=== PATIENT | female | born 1990 | race Caucasian/White ===

== ENCOUNTER 2016-05-03 13:10 | Emergency (ER) | payer BC ==
[~2016-05-03] VITALS: Wt 61.3 kg
--- NOTE | 2016-05-03 14:34 | ERA ---
ER Documentation Chief Complaint Date/Time DATE: 05/03/16 TIME: 14:33 Chief Complaint abd pain lower with nausea and vomiting. no dysuria or hematuria HPI The patient is a 25-year-old female, presenting to the ER because of suprapubic abdominal pain intermittently for the last 2 months, constipation. She missed her menstrual period for 2 months; however she has irregular menstrual period. He denies fever, chills, neck pain, chest pain, nausea, vomiting, dysuria, diarrhea. She does not smoke, drink Past medical/surgical history: None ROS All systems reviewed and are negative except as per history of present illness. Medications Home Meds Reported Medications [None] No Conflict Check 11/27/09 Allergies Allergies: Coded Allergies: No Known Allergy (Verified Allergy, Mild, 11/27/09) PMhx/Soc History of Surgery: No Hx Neurological Disorder: No Hx Respiratory Disorders: No Hx Cardiac Disorders: No Hx Psychiatric Problems: Yes (ANXIETY) Hx Miscellaneous Medical Probl: No Hx Alcohol Use: No Hx Substance Use: No Hx Tobacco Use: No Physical Exam Vitals Vital Signs Date Time Temp Pulse Resp B/P Pulse Ox O2 Delivery O2 Flow Rate FiO2 05/03/16 17:05 98.0 80 16 114/67 100 Room Air 05/03/16 13:13 98.8 76 20 122/70 100 Physical Exam Const: No acute distress. Head: Atraumatic. Eyes: Normal Conjunctiva. ENT: Normal External Ears, Nose and Mouth. Neck: Full range of motion. No meningismus. Resp: Clear to auscultation bilaterally. Cardio: Regular rate and rhythm, no murmurs. Abd: Soft, non distended, normal bowel sounds, mild suprapubic abdominal tenderness, no right lower quadrant, right upper quadrant, epigastric , CVA tenderness Skin: No petechiae or rashes. Back: No midline or flank tenderness. Ext: No cyanosis, or edema. Neur: Awake and alert. No focal deficit Psych: Normal Mood and Affect. Result Diagram: 05/03/16 1550 Results 24 hrs Laboratory Tests Test 05/03/16 15:18 05/03/16 15:50 Bedside Urine Blood Trace-intact Bedside Urine Glucose (UA) Negative Bedside Urine Ketones (LAB) 3+ Bedside Urine Leukocyte Esterase (L Negative Bedside Urine Nitrite (LAB) Negative Bedside Urine Protein (LAB) 1+ Bedside Urine pH (LAB) 7.0 Basophils # 0.010^3/ul Basophils % 0.1% Beta HCG, Quantitative 65106.0mIU/ml Eosinophils # 0.010^3/ul Eosinophils % 0.3% Hematocrit 41.3% Hemoglobin 13.6g/dl Lymphocytes # 2.110^3/ul Lymphocytes % 23.2% Mean Corpuscular Hemoglobin 29.1pg Mean Corpuscular Hemoglobin Concent 32.9g/dl Mean Corpuscular Volume 88.4fl Mean Platelet Volume 10.6fl Monocytes # 0.510^3/ul Monocytes % 5.1% Neutrophils # 6.510^3/ul Neutrophils % 71.1% Nucleated Red Blood Cells # 0.010^3/ul Nucleated Red Blood Cells % 0.0/100WBC Platelet Count 86547^3/UL Red Blood Count 4.6710^6/ul Red Cell Distribution Width 12.4% White Blood Count 9.210^3/ul Procedures/[place] [id number] Radiology Main Line: [phone] DIAGNOSTIC IMAGING REPORT Patient: LETTY MUIR : 1990 Age: 25 Sex: F MR #: [id number] DOS: 05/03/16 1524 Ordering MD: MAGALY ALANIS MD Location: [facility] Room/Bed: PROCEDURE: OBSTETRICAL ULTRASOUND WITH ENDOVAGINAL IMAGES CLINICAL INDICATION: Vaginal Bleed (), abdominal pain TECHNIQUE: Multiple sonographic images of the pelvis were obtained utilizing a transabdominal and endovaginal technique. The images were reviewed on a PACS workstation. COMPARISON: None. LMP: 02/21/2016 FINDINGS: There is a single live intrauterine with heart rate of 115 beats per minute, mean sac diameter of 1.84 cm, and crown-rump length of 0.39 cm which is consistent with a gestational age of 6 weeks, 3 days . The estimated date of delivery by ultrasound is 12/24/2016 . The estimated gestational age by LMP is 10 weeks, 2 days . The estimated date of delivery by LMP is 11/27/2016 . There is a tiny hypoechoic triangular lesion adjacent to the gestational sac measuring 5 x 1 mm consistent with a subchorionic hemorrhage. Bilateral ovaries are not visualized. There are no abnormal adnexal masses. No significant pelvic free fluid is identified. IMPRESSION: Single live intrauterine consistent with a gestational age of 6 weeks , 3 days . The estimated date of delivery is 12/24/2016 . Dating by ultrasound is not consistent with dating by LMP. Sub-centimeter subchorionic hemorrhage. Bilateral ovaries are not visualized. There are no abnormal adnexal masses. RPTAT: EE Hector Palacios Physician Date Time Electronically viewed and signed by Hector Palacios Physician on 05/03/2016 16:32 RA/ CC: MAGALY ALANIS MD MEDICAL MAKING DECISION: The patient is a 25-year-old female, presenting with acute new onset . The differential diagnoses considered include but are not limited to threatened/incomplete/inevitable/complete , ectopic , non- related bleeding. Departure Diagnosis: Primary Impression: Condition: Good Comments I discussed the findings with the patient. 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 MAGALY ALANIS MD May 03, 2016 14:34
[2016-05-03 15:15] LABS: URINE BLOOD (Dip) POC Trace-intact (NEGATIVE)
[2016-05-03 16:02] LABS: ADD SCAN DIFF NO
[2016-05-03 16:16] LABS: BASOPHILS % 0.1 % (0.0-2.0); EOSINOPHILS % 0.3 % (0.0-7.0); HEMATOCRIT 41.3 % (37.0-47.0); HEMOGLOBIN 13.6 g/dl (12.0-16.0); LYMPHOCYTES # 2.1 10^3/ul (0.8-2.9); LYMPHOCYTES % 23.2 % (15.0-51.0); MEAN CORPUSCULAR HEMOGLOBIN 29.1 pg (29.0-33.0); MEAN CORPUSCULAR HGB CONC 32.9 g/dl (32.0-37.0); MEAN CORPUSCULAR VOLUME 88.4 fl (82.0-101.0); MEAN PLATELET VOLUME 10.6 fl (7.4-10.4); MONOCYTE # 0.5 10^3/ul (0.3-0.9); MONOCYTES % 5.1 % (0.0-11.0); NEUTROPHIL # 6.5 10^3/ul (1.6-7.5); NEUTROPHILS % 71.1 % (39.0-77.0); PLATELET COUNT 294 10^3/UL (140-415); RED BLOOD COUNT 4.67 10^6/ul (4.20-5.40); RED CELL DISTRIBUTION WIDTH 12.4 % (11.5-14.5); WHITE BLOOD COUNT 9.2 10^3/ul (4.8-10.8)
--- NOTE | 2016-05-03 16:32 | RADRPT ---
PROCEDURE: OBSTETRICAL ULTRASOUND WITH ENDOVAGINAL IMAGES CLINICAL INDICATION: Vaginal Bleed (), abdominal pain TECHNIQUE: Multiple sonographic images of the pelvis were obtained utilizing a transabdominal and endovaginal technique. The images were reviewed on a PACS workstation. COMPARISON: None. LMP: 02/21/2016 FINDINGS: There is a single live intrauterine with heart rate of 115 beats per minute, mean sa c diameter of 1.84 cm, and crown-rump length of 0.39 cm which is consistent with a gestational age o f 6 weeks, 3 days . The estimated date of delivery by ultrasound is 12/24/2016 . The estimated gestational age by LMP is 10 weeks, 2 days . The estimated date of delivery by LMP is 11/27/2016 . There is a tiny hypoechoic triangular lesion adjacent to the gestational sac measuring 5 x 1 mm cons istent with a subchorionic hemorrhage. Bilateral ovaries are not visualized. There are no abnormal adnexal masses. No significant pelvic free fluid is identified. IMPRESSION: Single live intrauterine consistent with a gestational age of 6 weeks, 3 days . The estimated date of delivery is 12/24/2016 . Dating by ultrasound is not consistent with dating by LMP. Sub-centimeter subchorionic hemorrhage. Bilateral ovaries are not visualized. There are no abnormal adnexal masses. RPTAT: EE Physician Perry Date Time Electronically viewed and signed by Physician Perry on 05/03/2016 16:32 /
[2016-05-03 17:05] VITALS: BP 114/67; PULSE 80; RESP 16; TEMP 98
== END 2016-05-03 17:05 | disposition home or self-care (01) ==
LOC: FTE 13:10
DX: R10.30 Lower abdominal pain, unspecified (principal); Z33.1 Pregnant state, incidental
CPT/HCPCS: 76801; 81003; 84702; 85025; 86900; 86901; Z7502

== ENCOUNTER 2016-05-13 00:11 | Emergency (ER) | payer BC ==
[~2016-05-13] VITALS: Ht 162.6 cm; Wt 61.5 kg
[2016-05-13 00:18] VITALS: Ht 162.6 cm; Wt 61.5 kg
[2016-05-13] MEDS ORDERED: SOD CHLORIDE 0.9% 1,000 ML IV STA (02:32)
[2016-05-13] MEDS ORDERED: METOCLOPRAMIDE 10 MG INJ IV ONE (03:00)
[2016-05-13 03:09] LABS: ADD SCAN DIFF NO
--- NOTE | 2016-05-13 03:24 | RADRPT ---
PROCEDURE: US OB. CLINICAL INDICATION: Pain TECHNIQUE: Transabdominal and transvaginal views of the pelvis are available for review. COMPARISON: There are no similar studies submitted for comparison. FINDINGS: There is a a single intrauterine gestation with a crown-rump length measuring 1.25 cm, corresponding to a gestational age of 7 weeks 5 days. A yolk sac is noted. The heart rate is noted at 168 bpm. The ovaries are not seen. There is no pelvic free fluid. No adnexal masses are seen. IMPRESSION: Single live intrauterine with an estimated gestational age of 7 weeks 3 days. Continued fo llow-up is recommended. RPTAT: HIKT .Raphael Martin MD, MD Date Time Electronically viewed and signed by .Raphael Martin MD, on 05/13/2016 03:23 .T/
[2016-05-13 03:27] LABS: ADD UMIC YES; URINE BILIRUBIN (Dip) NEGATIVE (NEGATIVE); URINE BLOOD (Dip) 1+ (NEGATIVE); URINE COLOR LT. YELLOW (YELLOW); URINE GLUCOSE (Dip) NEGATIVE (NEGATIVE); URINE KETONES (Dip) 40 (NEGATIVE); URINE LEUKOCYTE ESTERASE (Dip) NEGATIVE (NEGATIVE); URINE NITRITE (Dip) NEGATIVE (NEGATIVE); URINE TOTAL PROTEIN (Dip) NEGATIVE (NEGATIVE); URINE UROBILINOGEN (Dip) 0.2 E.U./dL (0.1-1.0)
[2016-05-13 03:30] LABS: POTASSIUM 3.8 mmol/L (3.5-5.1)
[2016-05-13 03:32] LABS: ALBUMIN/GLOBULIN RATIO 1.37; BILIRUBIN,INDIRECT 0.5 mg/dl (0-1.1); BILIRUBIN,TOTAL 0.5 mg/dl (0.2-1.3); CREATININE 0.48 mg/dl (0.44-1.00); TOTAL PROTEIN 6.9 g/dl (6.1-8.1)
[2016-05-13 03:33] LABS: CALCIUM 9.2 mg/dl (8.4-10.2)
[2016-05-13 03:41] LABS: BACTERIA,URINE OCCASIONAL; MUCUS,URINE FEW; SQUAMOUS EPITHELIAL CELL,UR MANY
[2016-05-13 03:41] LABS: BASOPHILS % 0.2 % (0.0-2.0); EOSINOPHILS # 0.1 10^3/ul (0.0-0.5); EOSINOPHILS % 0.7 % (0.0-7.0); HEMATOCRIT 37.4 % (37.0-47.0); HEMOGLOBIN 12.5 g/dl (12.0-16.0); LYMPHOCYTES # 2.6 10^3/ul (0.8-2.9); LYMPHOCYTES % 28.3 % (15.0-51.0); MEAN CORPUSCULAR HEMOGLOBIN 29.5 pg (29.0-33.0); MEAN CORPUSCULAR HGB CONC 33.4 g/dl (32.0-37.0); MEAN CORPUSCULAR VOLUME 88.2 fl (82.0-101.0); MEAN PLATELET VOLUME 10.8 fl (7.4-10.4); MONOCYTE # 0.6 10^3/ul (0.3-0.9); MONOCYTES % 6.3 % (0.0-11.0); NEUTROPHIL # 5.9 10^3/ul (1.6-7.5); NEUTROPHILS % 64.2 % (39.0-77.0); PLATELET COUNT 228 10^3/UL (140-415); RED BLOOD COUNT 4.24 10^6/ul (4.20-5.40); RED CELL DISTRIBUTION WIDTH 12.5 % (11.5-14.5); WHITE BLOOD COUNT 9.2 10^3/ul (4.8-10.8)
[2016-05-13 03:50] VITALS: BP 108/77; PULSE 88; RESP 22; TEMP 98.6
--- NOTE | 2016-05-13 06:02 | ERD ---
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 Reports that she is currently . States that she actually tripped and fell. States that her last menses was March 18, 2016. States that she does not have an GOL[employer]. States that she has been having nausea and few episodes of nonbilious nonbloody vomiting that has been going on for the last 6 weeks intermittently. Denies any vaginal bleeding, vaginal discharge, diarrhea, chest pain, shortness of breath. ROS All systems reviewed and are negative except as per history of present illness. Medications Home Meds Reported Medications [None] No Conflict Check 11/27/09 Allergies Allergies: Coded Allergies: No Known Allergy (Verified Allergy, Mild, 11/27/09) PMhx/Soc Medical and Surgical Hx: pt denies Surgical Hx History of Surgery: No Hx Neurological Disorder: No Hx Respiratory Disorders: No Hx Cardiac Disorders: No Hx Psychiatric Problems: Yes (ANXIETY) Hx Miscellaneous Medical Probl: No Hx Alcohol Use: No Hx Substance Use: No Hx Tobacco Use: No Smoking Status: Never smoker Physical Exam Vitals Vital Signs Date Time Temp Pulse Resp B/P Pulse Ox O2 Delivery O2 Flow Rate FiO2 05/13/16 03:50 98.6 88 22 108/77 100 Room Air 05/13/16 00:18 98.6 95 20 122/80 100 Physical Exam Const: [id number], well-nourished. In no acute distress. Head: Atraumatic, normocephalic Eyes: Normal Conjunctiva without injection. No purulent discharge. ENT: Normal external ear, nose. Moist oropharynx without tonsillar exudates. Non -erythematous pharynx. Uvula midline. No drooling. No trismus. Neck: No cervical midline tenderness. Full range of motion. No meningismus. No cervical lymphadenopathy. No JVD. Resp: Clear to auscultation bilaterally. No wheezing, rhonchi, rales, or crackles. No accessory muscle use. No retractions. Cardio: Regular rate and rhythm. No murmurs, rubs or gallops. Abd: Soft, left pelvic tenderness, non distended. Normal bowel sounds. No palpable masses. No rebound tenderness. No guarding. Negative McBurney's point. Negative psoas sign. Negative obturator sign. Skin: No petechiae or rashes Back: No midline tenderness. No CVA tenderness. Ext: No cyanosis, or edema. Neur: Awake and alert. Normal gait. Normal coordination. Psych: Normal Mood and Affect Result Diagram: 05/13/16 0233 05/13/16 0253 Results 24 hrs Laboratory Tests Test 05/13/16 02:33 05/13/16 02:53 05/13/16 03:02 Basophils # 0.010^3/ul Basophils % 0.2% Beta HCG, Quantitative 346437.0mIU/ml Eosinophils # 0.110^3/ul Eosinophils % 0.7% Hematocrit 37.4% Hemoglobin 12.5g/dl Lymphocytes # 2.610^3/ul Lymphocytes % 28.3% Mean Corpuscular Hemoglobin 29.5pg Mean Corpuscular Hemoglobin Concent 33.4g/dl Mean Corpuscular Volume 88.2fl Mean Platelet Volume 10.8fl Monocytes # 0.610^3/ul Monocytes % 6.3% Neutrophils # 5.910^3/ul Neutrophils % 64.2% Nucleated Red Blood Cells # 0.010^3/ul Nucleated Red Blood Cells % 0.0/100WBC Platelet Count 14878^3/UL Red Blood Count 4.2410^6/ul Red Cell Distribution Width 12.5% White Blood Count 9.210^3/ul Alanine Aminotransferase (ALT/SGPT) 20IU/L Albumin 4.0g/dl Albumin/Globulin Ratio 1.37 Alkaline Phosphatase 51IU/L Anion Gap 17 Aspartate Amino Transf (AST/SGOT) 16IU/L Blood Urea Nitrogen 6mg/dl Calcium Level 9.2mg/dl Carbon Dioxide Level 26mmol/L Chloride Level 104mmol/L Creatinine 0.48mg/dl Direct Bilirubin 0.00mg/dl Globulin 2.90g/dl Glucose Level 92mg/dl Indirect Bilirubin 0.5mg/dl Lipase 32U/L Potassium Level 3.8mmol/L Sodium Level 143mmol/L Total Bilirubin 0.5mg/dl Total Protein 6.9g/dl Urine Bacteria OCCASIONAL Urine Bilirubin NEGATIVE Urine Clarity CLEAR Urine Color LT. YELLOW Urine Glucose NEGATIVE% Urine Hemoglobin 1+ Urine Ketones 40 Urine Leukocyte Esterase NEGATIVE Urine Microscopic RBC 2-5/HPF Urine Microscopic WBC 2-5/HPF Urine Mucus FEW Urine Nitrite NEGATIVE Urine Specific [place] 1.020 Urine Squamous Epithelial Cells MANY Urine Total Protein NEGATIVE Urine Urobilinogen 0.2 E.U./dL Urine pH 6.0 Current Medications Medications (Trade) Dose Ordered Sig/Verenice Route PRN Reason Start Time Stop Time Status Last Admin Dose Admin Sodium Chloride (NS) 1,000 ml @ 1,000 mls/hr Q1H STAT IV 05/13/16 02:32 05/13/16 03:31 DC 05/13/16 03:12 Metoclopramide HCl (Reglan) 10 mg ONCE ONCE IV 05/13/16 03:00 05/13/16 03:01 DC 05/13/16 03:12 Procedures/MDM This is a 25-year-old female with no significant past medical history is 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 Patient is afebrile and nontoxic-appearing. Patient has normal vital signs. An ultrasound, beta-hCG, CBC, type and RH, UA was ordered to evaluate patient. CBC: No evidence of severe infection or anemia Urine: No elevation in nitrites, leukocyte esterase, hematuria. No evidence of UTI Rh: A positive No indication for Rhogam at this time. beta Hc PROCEDURE: US OB. CLINICAL INDICATION: Pain TECHNIQUE: Transabdominal and transvaginal views of the pelvis are available for review. COMPARISON: There are no similar studies submitted for comparison. FINDINGS: There is a a single intrauterine gestation with a crown-rump length measuring 1.25 cm, corresponding to a gestational age of 7 weeks 5 days. A yolk sac is noted. The heart rate is noted at 168 bpm. The ovaries are not seen. There is no pelvic free fluid. No adnexal masses are seen. IMPRESSION: Single live intrauterine with an estimated gestational age of 7 weeks 3 days. Continued follow-up is recommended. Patient's bleeding symptoms have stabilized while in the department. Low suspicion for symptomatic anemia, ectopic , sepsis, PID, appendicitis, ovarian torsion, tubo-ovarian abscess, surgical abdomen, or other emergent conditions. Patient was educated that there is a risk for threatened . Patient eloped from the ED and signed AMA as she did not want to wait for her results of the ultrasound, blood work. Departure Diagnosis: Primary Impression: Pelvic pain affecting Condition: DONTRELL He PA-C May 13, 2016 06:01
== END 2016-05-13 04:22 | disposition left against medical advice (07) ==
LOC: FTE 00:11 → E/R 04:22
DX: O9A.211 Injury, poisoning and certain other consequences of external causes complicating pregnancy, first trimester (principal); S39.93XA Unspecified injury of pelvis, initial encounter; R10.2 Pelvic and perineal pain; W01.0XXA Fall on same level from slipping, tripping and stumbling without subsequent striking against object, initial encounter; Y92.9 Unspecified place or not applicable; Z3A.01 Less than 8 weeks gestation of pregnancy
CPT/HCPCS: 36415; 76801; 80053; 81001; 81003; 83690; 84702; 85025; 86900; 86901; 96374; J2765; J7030; Z7502

== ENCOUNTER 2016-07-07 01:01 | Emergency (ER) | payer BC ==
[~2016-07-07] VITALS: Ht 160 cm; Wt 64.5 kg
[2016-07-07 01:05] VITALS: Ht 160 cm; Wt 64.5 kg
--- NOTE | 2016-07-07 02:08 | ERD ---
ER Documentation Chief Complaint Date/Time DATE: 07/07/16 TIME: 02:07 Chief Complaint 14 wks , pelvic pain x 2 weeks HPI 26-year-old female presents here in emergency department for complaints of pelvic pain for 2 weeks. Patient is 2 para 0 0. Patient possibly 14 weeks , LMP 03/18/2016. Patient describes the pelvic pain as cramping pains especially scale, not better or worse with anything. Patient denies any nausea vomiting diarrhea or constipation. Patient denies any fever or chills. Patient denies hematuria or dysuria. She did not take any medications to help with symptoms. ROS All systems reviewed and are negative except as per history of present illness. Medications Home Meds Reported Medications [None] No Conflict Check 11/27/09 Allergies Allergies: Coded Allergies: No Known Allergy (Verified Allergy, Mild, 11/27/09) PMhx/Soc Medical and Surgical Hx: pt denies Surgical Hx History of Surgery: No Hx Neurological Disorder: No Hx Respiratory Disorders: No Hx Cardiac Disorders: No Hx Psychiatric Problems: Yes (ANXIETY) Hx Miscellaneous Medical Probl: No Hx Alcohol Use: No Hx Substance Use: No Hx Tobacco Use: No Smoking Status: Unknown if ever smoked FmHx Family History: No coronary disease, No diabetes, No other Physical Exam Vitals Vital Signs Date Time Temp Pulse Resp B/P Pulse Ox O2 Delivery O2 Flow Rate FiO2 07/07/16 01:05 97.8 93 20 133/80 98 Physical Exam GENERAL: The patient is well developed and appropriate for usual state of health, in no apparent distress. CHEST: Clear to auscultation bilaterally. There are no rales, wheezes or rhonchi. HEART: Regular rate and rhythm. No murmurs, clicks, rubs or gallops. No S3 or S4. ABDOMEN: Soft, nontender and nondistended. Good bowel sounds. No rebound or guarding. No gross peritonitis. No gross organomegaly or masses. No Segovia sign or McBurney point tenderness. BACK: No midline or flank tenderness. EXTREMITIES: Equal pulses bilaterally. There is no peripheral clubbing, cyanosis or edema. No focal swelling or erythema. Full range of motion. Grossly neurovascularly intact. NEURO: Alert and oriented. Cranial nerves 2-12 intact. Motor strength in all 4 extremities with 5/5 strength. Sensation grossly intact. Normal speech and gait. SKIN: There is no apparent rash or petechia. The skin is warm and dry. HEMATOLOGIC AND LYMPHATIC: There is no evidence of excessive bruising or lymphedema. No gross cervical, axillary, or inguinal lymphadenopathy. Result Diagram: 07/07/165 07/07/165 Results 24 hrs Laboratory Tests Test 07/07/16 02:25 07/07/16 04:11 White Blood Count 8.910^3/ul Red Blood Count 4.1110^6/ul Hemoglobin 12.0g/dl Hematocrit 36.3% Mean Corpuscular Volume 88.3fl Mean Corpuscular Hemoglobin 29.2pg Mean Corpuscular Hemoglobin Concent 33.1g/dl Red Cell Distribution Width 13.0% Platelet Count 28069^3/UL Mean Platelet Volume 10.5fl Neutrophils % 68.0% Lymphocytes % 22.9% Monocytes % 7.6% Eosinophils % 1.1% Basophils % 0.1% Nucleated Red Blood Cells % 0.0/100WBC Neutrophils # 6.010^3/ul Lymphocytes # 2.010^3/ul Monocytes # 0.710^3/ul Eosinophils # 0.110^3/ul Basophils # 0.010^3/ul Nucleated Red Blood Cells # 0.010^3/ul Sodium Level 140mmol/L Potassium Level 3.7mmol/L Chloride Level 106mmol/L Carbon Dioxide Level 25mmol/L Anion Gap 13 Blood Urea Nitrogen 9mg/dl Creatinine 0.50mg/dl Glucose Level 91mg/dl Calcium Level 9.0mg/dl Total Bilirubin 0.1mg/dl Direct Bilirubin 0.00mg/dl Indirect Bilirubin 0.1mg/dl Aspartate Amino Transf (AST/SGOT) 15IU/L Alanine Aminotransferase (ALT/SGPT) 24IU/L Alkaline Phosphatase 51IU/L Total Protein 6.6g/dl Albumin 3.4g/dl Globulin 3.20g/dl Albumin/Globulin Ratio 1.06 Beta HCG, Quantitative 44311.0mIU/ml Urine Color LT. YELLOW Urine Clarity CLEAR Urine pH 6.0 Urine Specific [place] 1.025 Urine Ketones NEGATIVE Urine Nitrite NEGATIVE Urine Bilirubin NEGATIVE Urine Urobilinogen 1.0 E.U./dL Urine Leukocyte Esterase 1+ Urine Microscopic RBC 2-5/HPF Urine WBC Clumps FEW Urine Microscopic WBC 25-50/HPF Urine Squamous Epithelial Cells MANY Urine Bacteria MANY Urine Mucus FEW Urine Hemoglobin 1+ Urine Glucose NEGATIVE% Urine Total Protein NEGATIVE PROCEDURE: Obstetrical ultrasound, limited. CLINICAL INDICATION: Pelvic pain. TECHNIQUE: Multiple sonographic images of the pelvis were obtained using transabdominal technique. Images were obtained with brumfield scale and color Doppler. The images were reviewed on a PACS workstation. COMPARISON: 05/13/2016. FINDINGS: There is a single living intrauterine gestation with the fetus in a cephalic and variable presentation. heart tones of 161 beats per minute are identified. The placenta is posterior in location, grade 0. There is normal amniotic fluid volume with the maximum vertical pocket measuring 3.8 cm. There is no evidence of placenta previa or abruption. Measurements were made in order to determine age. The results are as follows: BPD = 3.33 cm HC = 12.10 cm AC = 9.87 cm FL = 1.88 cm. Estimated gestational age of approximately 16 weeks and 0 days. The estimated date of delivery is 12/22/2016. The EFW = 135 +/- 20 grams. Estimated weight percentage equals 36.8%. IMPRESSION: Single viable intrauterine gestation of approximately 16 weeks and 0 days, with an ultrasound GLORY of 12/22/2016. .Zach Maldonado MD, Date Time Electronically viewed and signed by .Zach Maldonado MD, MD on 07/07/2016 03:59 .T/ CC: ROBERTA WONG DRILL [employer] SET UP OPERATOR Procedures/MDM Medical Decision Making: Patient's symptoms of pelvic pain most active consistent with urinary tract infection. It can be also from the groin since this is her first that went throughout 16 weeks. There is low suspicion for abdominal emergencies at this time. Patients abdominal exam is normal at this time. Patient is a viable at 16 weeks without subchorionic bleed. No suspicion for threatened .. There is low suspicion for appendicitis, cholecystitis, abdominal aortic aneurysms or peritonitis at this time. There is low suspicion for sepsis. Patient appears well and is hemodynamically stable. Disposition: Home. Condition: Stable Prescription Tylenol, Keflex Instructions: Patient is advised to take medications as prescribed. Patient is advised to rest, increase fluid intake and do perineal hygiene. Patient is advised that if symptoms are worse, severe abdominal pain, uncontrolled vomiting , high fever, severe flank pain, worst signs and symptoms, to return to the emergency department immediately. Otherwise, patient can follow up with primary care doctor or OB doctor in 2 days for reevaluation of symptoms Departure Diagnosis: Primary Impression: Pelvic pain affecting Additional Impressions: UTI (urinary tract infection) Urinary tract infection type: acute cystitis Hematuria presence: without hematuria Qualified Code: N30.00 - Acute cystitis without hematuria Intrauterine Condition: Stable Patient Instructions: Pelvic Pain In : Unclear (2-3 Trimester), Understanding Urinary Tract Infections (UTIs) Additional Instructions: Patient is advised to take medications as prescribed. Patient is advised to rest, increase fluid intake and do perineal hygiene. Patient is advised that if symptoms are worse, severe abdominal pain, uncontrolled vomiting, high fever, severe flank pain, worst signs and symptoms, to return to the emergency department immediately. Otherwise, patient can follow up with primary care doctor or OB doctor in 2 days for reevaluation of symptoms ROBERTA WONG NP July 07, 2016 02:08
[2016-07-07 02:32] LABS: ADD SCAN DIFF NO
[2016-07-07 02:34] LABS: BASOPHILS % 0.1 % (0.0-2.0); EOSINOPHILS # 0.1 10^3/ul (0.0-0.5); EOSINOPHILS % 1.1 % (0.0-7.0); HEMATOCRIT 36.3 % (37.0-47.0); LYMPHOCYTES % 22.9 % (15.0-51.0); MEAN CORPUSCULAR HEMOGLOBIN 29.2 pg (29.0-33.0); MEAN CORPUSCULAR HGB CONC 33.1 g/dl (32.0-37.0); MEAN CORPUSCULAR VOLUME 88.3 fl (82.0-101.0); MEAN PLATELET VOLUME 10.5 fl (7.4-10.4); MONOCYTE # 0.7 10^3/ul (0.3-0.9); MONOCYTES % 7.6 % (0.0-11.0); PLATELET COUNT 219 10^3/UL (140-415); RED BLOOD COUNT 4.11 10^6/ul (4.20-5.40); WHITE BLOOD COUNT 8.9 10^3/ul (4.8-10.8)
[2016-07-07 03:09] LABS: ALBUMIN 3.4 g/dl (3.3-4.9)
[2016-07-07 03:10] LABS: POTASSIUM 3.7 mmol/L (3.5-5.1)
[2016-07-07 03:12] LABS: BILIRUBIN,INDIRECT 0.1 mg/dl (0-1.1); BILIRUBIN,TOTAL 0.1 mg/dl (0.2-1.3); CREATININE 0.5 mg/dl (0.44-1.00)
[2016-07-07 03:13] LABS: ALBUMIN/GLOBULIN RATIO 1.06; TOTAL PROTEIN 6.6 g/dl (6.1-8.1)
--- NOTE | 2016-07-07 04:00 | RADRPT ---
PROCEDURE: Obstetrical ultrasound, limited. CLINICAL INDICATION: Pelvic pain. TECHNIQUE: Multiple sonographic images of the pelvis were obtained using transabdominal technique . Images were obtained with brumfield scale and color Doppler. The images were reviewed on a PACS works [employer]. COMPARISON: 05/13/2016. FINDINGS: There is a single living intrauterine gestation with the fetus in a cephalic and variable presentati on. heart tones of 161 beats per minute are identified. The placenta is posterior in locatio n, grade 0. There is normal amniotic fluid volume with the maximum vertical pocket measuring 3.8 cm . There is no evidence of placenta previa or abruption. Measurements were made in order to determine age. The results are as follows: BPD =3.33 cm HC =12.10 cm AC =9.87 cm FL =1.88 cm. Estimated gestational age of approximately 16 weeks and 0 days. The estimated date of delivery is 12/22/2016. The EFW = 135 +/- 20 grams. Estimated weight percentage equals 36.8%. IMPRESSION: Single viable intrauterine gestation of approximately 16 weeks and 0 days, with an ultrasound GLORY of 12/22/2016. .Zach Maldonado MD, MD Date Time Electronically viewed and signed by .Zach Maldonado MD, MD on 07/07/2016 03:59 .T/
[2016-07-07 04:28] LABS: ADD UMIC YES; URINE BILIRUBIN (Dip) NEGATIVE (NEGATIVE); URINE BLOOD (Dip) 1+ (NEGATIVE); URINE COLOR LT. YELLOW (YELLOW); URINE GLUCOSE (Dip) NEGATIVE (NEGATIVE); URINE KETONES (Dip) NEGATIVE (NEGATIVE); URINE LEUKOCYTE ESTERASE (Dip) 1+ (NEGATIVE); URINE NITRITE (Dip) NEGATIVE (NEGATIVE); URINE TOTAL PROTEIN (Dip) NEGATIVE (NEGATIVE); URINE UROBILINOGEN (Dip) 1.0 E.U./dL (0.1-1.0)
[2016-07-07 04:35] LABS: BACTERIA,URINE MANY; SQUAMOUS EPITHELIAL CELL,UR MANY
[2016-07-07 04:37] LABS: MUCUS,URINE FEW
[2016-07-07] MEDS ORDERED: CEPH-443 PO (04:49)
[2016-07-07] MEDS ORDERED: ACET500C5 PO (04:49)
== END 2016-07-07 04:58 | disposition home or self-care (01) ==
LOC: FTE 01:01
DX: O26.892 Other specified pregnancy related conditions, second trimester (principal); R10.2 Pelvic and perineal pain; O23.12 Infections of bladder in pregnancy, second trimester; Z3A.16 16 weeks gestation of pregnancy
CPT/HCPCS: 76805; 80053; 81001; 84702; 85025; 86900; 86901; Z7502; 81003

== ENCOUNTER 2016-07-20 21:07 | Emergency (ER) | payer BC ==
[~2016-07-20] VITALS: Ht 162.6 cm; Wt 56.4 kg
[~2016-07-20 21:07] MED LIST: ACET500C5 PO; CEPH-443 PO
[2016-07-20 21:19] VITALS: BP 116/73; PULSE 110; RESP 20; TEMP 98.1; Ht 162.6 cm; Wt 56.4 kg
[2016-07-20 21:51] LABS: ADD UMIC YES; URINE BILIRUBIN (Dip) NEGATIVE (NEGATIVE); URINE BLOOD (Dip) 1+ (NEGATIVE); URINE COLOR LT. YELLOW (YELLOW); URINE GLUCOSE (Dip) NEGATIVE (NEGATIVE); URINE KETONES (Dip) TRACE (NEGATIVE); URINE LEUKOCYTE ESTERASE (Dip) TRACE (NEGATIVE); URINE NITRITE (Dip) NEGATIVE (NEGATIVE); URINE TOTAL PROTEIN (Dip) 2+ (NEGATIVE); URINE UROBILINOGEN (Dip) 1.0 E.U./dL (0.1-1.0)
--- NOTE | 2016-07-20 21:54 | ERD ---
ER Documentation Chief Complaint Date/Time DATE: 07/20/16 TIME: 21:50 Chief Complaint HPI Patient is a 26-year-old female, G1, P0, A0 at 17 weeks gestational age who presents with sudden onset, moderate, cramping bilateral lower quadrant abdominal pain that started tonight while she was having an argument with her fianc. She denies vaginal bleeding, vomiting. The patient reports that she has had the same pain intermittently for 1 month. Previous ultrasound demonstrated an ovarian cyst. The patient also reports that she has had clear vaginal discharge for the last 7 years. She spoke with her [employer] in the last 1 -2 weeks and was told that this was not anything to be concerned about. There has been no change in the vaginal discharge. The patient denies fever, dysuria. She reports mild bilateral low back pain. Patient reports significant stress and anxiety related to her brothers drug addiction problem as well as concerned that her fianc is cheating on her and frequent arguments with him. She denies any physical abuse. She reports feeling depressed. She denies any prior history of depression or other psychiatric diagnoses. She denies suicidal ideation, homicidal ideation, hallucinations. The patient states that she did not fill her prescription for antibiotics after she was diagnosed with a UTI at her last visit. Patient is blood type A+. ROS All systems reviewed and are negative except as per history of present illness. Medications Home Meds Active Scripts Cephalexin* (Keflex*) 500 Mg Capsule, 500 MG PO QID for 7 Days, CAP Prov:KRISH LUONG MD 07/21/16 Reported Medications Folic Acid* (Folic Acid*) Unknown Strength Tablet, 0 PO DAILY, TAB 07/20/16 Ovp661/FA/Omega3/Dha/Fish Oil ( Gummies) 1 Each Tab.chew, 1 EACH PO, TAB.CHEW 07/20/16 Discontinued Reported Medications [None] No Conflict Check 11/27/09 Discontinued Scripts Acetaminophen* (Tylophen*) 500 Mg Capsule, 1 CAP PO Q6H Y for PAIN AND OR ELEVATED TEMP, #20 CAP Prov:ROBERTA WONG NP 07/07/16 Cephalexin* (Keflex*) 500 Mg Capsule, 500 MG PO QID for 7 Days, CAP Prov:ROBERTA WONG NP 07/07/16 Allergies Allergies: Coded Allergies: No Known Allergy (Unverified , 5/17/17) PMhx/Soc Past medical history: None Past surgical history: None Social history: Denies tobacco, alcohol or illicit drugs History of Surgery: No Hx Neurological Disorder: No Hx Respiratory Disorders: No Hx Cardiac Disorders: No Hx Psychiatric Problems: Yes (ANXIETY) Hx Miscellaneous Medical Probl: No Hx Alcohol Use: No Hx Substance Use: No Hx Tobacco Use: No FmHx Family History: No coronary disease, No diabetes Physical Exam Vitals Vital Signs Date Time Temp Pulse Resp B/P Pulse Ox O2 Delivery O2 Flow Rate FiO2 07/20/16 21:19 98.1 110 20 116/73 99 Room Air 07/20/16 21:19 98.1 110 18 116/73 Physical Exam Const: Alert, no acute distress Head: Atraumatic Eyes: Normal Conjunctiva, no pallor, no icterus ENT: Normal External Ears, Nose and Mouth. His membranes moist Neck: Full range of motion..~ No meningismus. Resp: Clear to auscultation bilaterally, no wheezes, no rales Cardio: Regular rate and rhythm, no murmurs Abd: Soft, non tender, no guarding, no rebound, gravid uterus extends to 2-3 cm below the umbilicus. Normal bowel sounds Skin: No petechiae or rashes Back: No midline tenderness, mild bilateral lumbar paraspinal tenderness, no CVA tenderness Ext: No cyanosis, or edema Neur: Awake and alert Psych: Patient appears anxious. Appropriately communicative. Result Diagram: 07/20/16214907/20/[id number] Results 24 hrs Laboratory Tests Test 07/20/16 21:18 07/20/16 21:50 Urine Color LT. YELLOW Urine Clarity SLIGHTLY CLOUDY Urine pH 6.0 Urine Specific [place] >=1.030 Urine Ketones TRACE Urine Nitrite NEGATIVE Urine Bilirubin NEGATIVE Urine Urobilinogen 1.0 E.U./dL Urine Leukocyte Esterase TRACE Urine Microscopic RBC 2-5/HPF Urine Microscopic WBC 10-25/HPF Urine Squamous Epithelial Cells FEW Urine Bacteria MODERATE Urine Hemoglobin 1+ Urine Glucose NEGATIVE% Urine Total Protein 2+ White Blood Count 13.910^3/ul Red Blood Count 4.3710^6/ul Hemoglobin 13.4g/dl Hematocrit 38.7% Mean Corpuscular Volume 88.6fl Mean Corpuscular Hemoglobin 30.7pg Mean Corpuscular Hemoglobin Concent 34.6g/dl Red Cell Distribution Width 12.7% Platelet Count 86687^3/UL Mean Platelet Volume 10.7fl Neutrophils % 77.0% Lymphocytes % 15.3% Monocytes % 6.2% Eosinophils % 0.6% Basophils % 0.1% Nucleated Red Blood Cells % 0.0/100WBC Neutrophils # 10.710^3/ul Lymphocytes # 2.110^3/ul Monocytes # 0.910^3/ul Eosinophils # 0.110^3/ul Basophils # 0.010^3/ul Nucleated Red Blood Cells # 0.010^3/ul Sodium Level 137mmol/L Potassium Level 3.6mmol/L Chloride Level 103mmol/L Carbon Dioxide Level 25mmol/L Anion Gap 13 Blood Urea Nitrogen 12mg/dl Creatinine 0.52mg/dl Glucose Level 92mg/dl Calcium Level 9.3mg/dl Total Bilirubin 0.1mg/dl Direct Bilirubin 0.00mg/dl Indirect Bilirubin 0.1mg/dl Aspartate Amino Transf (AST/SGOT) 19IU/L Alanine Aminotransferase (ALT/SGPT) 28IU/L Alkaline Phosphatase 60IU/L Total Protein 7.4g/dl Albumin 4.0g/dl Globulin 3.40g/dl Albumin/Globulin Ratio 1.17 Current Medications Medications (Trade) Dose Ordered Sig/Verenice Route PRN Reason Start Time Stop Time Status Last Admin Dose Admin Cephalexin (Keflex) 500 mg ONCE ONCE PO 07/21/16 00:00 07/21/16 00:01 DC 07/20/16 23:43 Procedures/MDM MDM: Patient is a 26-year-old female who reports recurrent lower abdominal pain for 1 month. She had worsening abdominal pain today during a an argument with her fianc. She has a benign examination, no vomiting, no fever. Patient has been previously diagnosed with a UTI, but did not fill her prescription so she has been untreated. She has evidence of ongoing UTI and mild leukocytosis. Her exam is not concerning for appendicitis. Attempts were made to visualize the ovaries due to the patient's report of ovarian cysts, but we were unable to visualize the ovaries due to her status. Her exam and description of pain did not resolve suspicion for ovarian torsion. She did not have signs of pyelonephritis or sepsis. Her ultrasound of the intrauterine gestation is unremarkable. I advised her on return precautions, the importance of taking her antibiotics as prescribed, and close follow-up with her [employer]. I advised her to follow-up on the results of urine culture in 3 days. The patient did report depression and situational stress related to her family and fianc, but the patient denies abuse or suicidality. Departure Diagnosis: Primary Impression: Urinary tract infection Urinary tract infection type: site unspecified Hematuria presence: without hematuria Qualified Code: N39.0 - Urinary tract infection without hematuria, site unspecified Additional Impressions: Abdominal pain in Trimester: second trimester Qualified Code: O26.892 - Abdominal pain in , second trimester Depression (emotion) Depression Type: depression during Trimester: second trimester Qualified Code: O99.342 - Depression during in second trimester Condition: Stable KRISH LUONG MD July 20, 2016 21:54 KRISH LUONG MD July 20, 2016 21:54
[2016-07-20 22:20] LABS: ADD SCAN DIFF NO
[2016-07-20 22:23] LABS: BASOPHILS % 0.1 % (0.0-2.0); EOSINOPHILS # 0.1 10^3/ul (0.0-0.5); EOSINOPHILS % 0.6 % (0.0-7.0); HEMATOCRIT 38.7 % (37.0-47.0); HEMOGLOBIN 13.4 g/dl (12.0-16.0); LYMPHOCYTES # 2.1 10^3/ul (0.8-2.9); LYMPHOCYTES % 15.3 % (15.0-51.0); MEAN CORPUSCULAR HEMOGLOBIN 30.7 pg (29.0-33.0); MEAN CORPUSCULAR HGB CONC 34.6 g/dl (32.0-37.0); MEAN CORPUSCULAR VOLUME 88.6 fl (82.0-101.0); MEAN PLATELET VOLUME 10.7 fl (7.4-10.4); MONOCYTE # 0.9 10^3/ul (0.3-0.9); MONOCYTES % 6.2 % (0.0-11.0); NEUTROPHIL # 10.7 10^3/ul (1.6-7.5); PLATELET COUNT 255 10^3/UL (140-415); RED BLOOD COUNT 4.37 10^6/ul (4.20-5.40); RED CELL DISTRIBUTION WIDTH 12.7 % (11.5-14.5); WHITE BLOOD COUNT 13.9 10^3/ul (4.8-10.8)
[2016-07-20 22:23] LABS: BACTERIA,URINE MODERATE; SQUAMOUS EPITHELIAL CELL,UR FEW
--- NOTE | 2016-07-20 22:37 | RADRPT ---
PROCEDURE: US OB. CLINICAL INDICATION: , vaginal bleeding. TECHNIQUE: Multiple sonographic images of the pelvis were obtained. Transabdominal views of the p elma are available for review. The images were reviewed on a PACS workstation. COMPARISON: 07/07/2016 FINDINGS: There is a single intrauterine . cardiac activity measures 161 bpm. No subchorionic hemorrhage is identified. There is a posterior placenta, grade 1. No placenta previa or abruption is visualized. There is no free pelvic fluid. IMPRESSION: 1. Single live intrauterine gestation. RPTAT: HTAR .Fer Everett MD, Date Time Electronically viewed and signed by .Fer Everett MD, on 07/20/2016 22:37 .R/
[2016-07-20 22:43] LABS: ALBUMIN/GLOBULIN RATIO 1.17; BILIRUBIN,INDIRECT 0.1 mg/dl (0-1.1); BILIRUBIN,TOTAL 0.1 mg/dl (0.2-1.3); CALCIUM 9.3 mg/dl (8.4-10.2); CREATININE 0.52 mg/dl (0.44-1.00); POTASSIUM 3.6 mmol/L (3.5-5.1); TOTAL PROTEIN 7.4 g/dl (6.1-8.1)
[2016-07-20] MEDS ORDERED: FOLI-49 PO (22:59)
[2016-07-20] MEDS ORDERED: PNV11TAB5 PO (22:59)
[2016-07-21] MEDS ORDERED: CEPHALEXIN 500 MG CAP PO ONE
[2016-07-21] MEDS ORDERED: CEPH-443 PO (00:10)
--- NOTE | 2016-07-21 00:13 | RADRPT ---
PROCEDURE: US Non-OB Pelvis. CLINICAL INDICATION: Ovarian cyst, pelvic pain. TECHNIQUE: Multiple sonographic images of the pelvis were obtained utilizing a transabdominal tech nique. The images were reviewed on a PACS workstation. COMPARISON: Pelvic ultrasound dated 07/20/2016 at 09:56 p.m. FINDINGS: The uterus is not imaged. The ovaries are not visualized due to a . No adnexal masses are noted. There is no evidence of free fluid. Abdominal bowel is visualized in the pelvis. The append ix is not identified. IMPRESSION: 1. The ovaries are not visualized. RPTAT: HTAR .Fer Everett MD, MD Date Time Electronically viewed and signed by .Fer Everett MD, on 07/21/2016 00:13 .R/
== END 2016-07-21 00:22 | disposition home or self-care (01) ==
LOC: E/R 21:07
DX: O23.42 Unspecified infection of urinary tract in pregnancy, second trimester (principal); O99.342 Other mental disorders complicating pregnancy, second trimester; F32.9 Major depressive disorder, single episode, unspecified; R10.32 Left lower quadrant pain; R10.31 Right lower quadrant pain; Z3A.17 17 weeks gestation of pregnancy
CPT/HCPCS: 36415; 76801; 76856; 80053; 81001; 85025; 87086; Z7502; Z7610; 81003

== ENCOUNTER 2016-09-03 20:31 | Outpatient (CLI) | payer BC ==
[~2016-09-03] VITALS: Ht 162.6 cm; Wt 67.9 kg
[~2016-09-03 20:31] MED LIST changes: -ACET500C5 PO; +FOLI-49 PO; +PNV11TAB5 PO
[2016-09-03 21:16] VITALS: BP 120/61; PULSE 79; RESP 18; Ht 162.6 cm; Wt 67.9 kg
[2016-09-03 22:28] LABS: ADD UMIC YES; UR ASCORBIC ACID 40 mg/dL (NEGATIVE); UR BACTERIA FEW /HPF (NONE SEEN); UR BILIRUBIN (Dip) NEGATIVE (NEGATIVE); UR BLOOD (Dip) NEGATIVE (NEGATIVE); UR CLARITY TURBID (CLEAR); UR COLOR AMBER (YELLOW); UR GLUCOSE (Dip) NEGATIVE (NEGATIVE); UR KETONES (Dip) TRACE mg/dL (NEGATIVE); UR LEUKOCYTE ESTERASE (Dip) 3+ Leu/ul (NEGATIVE); UR MUCUS FEW /HPF (NONE SEEN); UR NITRITE (Dip) NEGATIVE (NEGATIVE); UR RBC 3 /HPF (0-5); UR SPECIFIC GRAVITY (Dip) 1.033 (1.003-1.030); UR SQUAMOUS EPITHELIAL CELL FEW /HPF (FEW); UR TOTAL PROTEIN (Dip) 1+ mg/dl (NEGATIVE); UR UROBILINOGEN (Dip) NEGATIVE (NEGATIVE)
--- NOTE | 2016-09-03 23:55 | RADRPT ---
PROCEDURE: Obstetrical ultrasound, limited. CLINICAL INDICATION: Pelvic pain. TECHNIQUE: Multiple sonographic images of the pelvis were obtained using transabdominal technique . Images were obtained with brumfield scale and color Doppler. The images were reviewed on a PACS works [employer]. COMPARISON: 07/20/2016. FINDINGS: There is a single living intrauterine gestation with the fetus in a breech and variable presentation . heart tones of 159 beats per minute are identified. The placenta is posterior in location, grade 1. There is normal amniotic fluid volume with the maximal vertical pocket measuring 7.7 cm. IMPRESSION: Single viable intrauterine gestation. .Zach Maldonado MD, Date Time Electronically viewed and signed by .Zach Maldonado MD, on 09/03/2016 23:55 .T/
--- NOTE | 2016-09-04 00:27 | RADRPT ---
PROCEDURE: Limited OB ultrasound CLINICAL INDICATION: Pain TECHNIQUE: Limited sonographic evaluation of the gravid uterus was performed to assess the cervica l length COMPARISON: 07/20/2016. FINDINGS: Single live intrauterine with cardiac heart rate of 161 beats per minute is identifi ed. Fetus is in a cephalic presentation. Placenta is posterior. Cervix measures 2.5 cm. cm in [facility]. IMPRESSION: Single live intrauterine with a cervical length of 2.5 cm. RPTAT: HMVK .Sj Nam MD, Date Time Electronically viewed and signed by .Sj Nam MD, on 09/04/2016 00:27 .K/
--- NOTE | 2016-09-04 00:54 | PN ---
Triage Information Date/Time Weeks of Gestation 24+ : 1 Para: 0 Diabetes: none Additional information Some suprapubic pain U/A +leuk Objective Vital Signs Date Time Temp Pulse Resp B/P Pulse Ox O2 Delivery O2 Flow Rate FiO2 09/03/16 21:16 98.0 79 18 120/61 Room Air Heart Rate: 140's Contractions: None Results/Medications Results 24 hrs Laboratory Tests Test 09/03/16 21:25 09/03/16 22:30 Urine Color DMITRY Urine Clarity TURBID A Urine pH 5.0 Urine Specific [place] 1.033 H Urine Ketones TRACE A Urine Nitrite NEGATIVE Urine Bilirubin NEGATIVE Urine Urobilinogen NEGATIVE Urine Leukocyte Esterase 3+ H Urine Microscopic RBC 3 Urine Microscopic WBC 112 H Urine Squamous Epithelial Cells FEW Urine Bacteria FEW A Urine Mucus FEW A Urine Hemoglobin NEGATIVE Urine Glucose NEGATIVE Urine Total Protein 1+ H Fibronectin NEGATIVE Assessment/Plan FFN Neg CXL 2.5 NST reassuring for GA --->patient is discharged with precautions --->hydration is recommended --->patient's questions answered --->macrobid given --->F/u with her private ULISES HENDRIX M.D. Sep 04, 2016 00:53
--- NOTE | 2016-09-04 01:09 | TRIAGE ---
OB Triage Datetime Report Generated by CPN: 09/04/2016 01:08 Datetime: 09/03/2016 23:39 Vaginal Exam Membrane Status: Intact Datetime: 09/03/2016 22:44 Labor Evaluation Frequency: NONE Pattern: Normal: <= 5 Contractions in 10 Minutes Resting Tone [place]: Relaxed Heart Rate FHR Baseline Rate: 145 FHR Baseline Changes: No Baseline Change Datetime: 09/03/2016 21:06 Maternal Assessment Level of Consciousness: Fully Conscious DTR's/Clonus: DTRs 2+; No Clonus Headache: Denies Blurred Vision: No Respiratory Effort: Unlabored; Regular Rhythm; Equal Expansion Breath Sounds, Left: Clear and Equal Breath Sounds, Right: Clear and Equal Nausea/Vomiting: Denies RUQ Epigastric Pain: Denies Facial Edema: None Fall Risk Assessment History of Falling: (0) No Secondary Diagnosis: (0) No Ambulatory Aid: (0) Bedrest/Nurse Assist IV Therapy: (0) No Gait: (0) Normal/Bedrest/Immobile Mental Status: (0) Oriented to Own Ability Fall Score: 0 Fall Risk Score Definition: No Risk: No action required Datetime: 09/03/2016 20:58 Labor Evaluation Frequency: NONE Pattern: Normal: <= 5 Contractions in 10 Minutes Resting Tone [place]: Relaxed Heart Rate FHR Baseline Rate: 145 Monitor Mode: External US FHR Baseline Changes: No Baseline Change Variability: Moderate 6-25 bpm Accelerations: 15X15 Decelerations: None Category: Category I Datetime: 09/03/2016 20:52 Time of Arrival: 09/03/2016 20:25 EGA: 24.0 Arrived By: Ambulatory Arrived From: Home Chief Complaint: PAIN IN RIGHT OVARY Movement: Present Contractions: Denies/Absent Rupture of Membranes: Denies Vaginal Bleeding: None Vaginal Discharge: Denies Recent Sexual Intercouse: Denies Abdominal Trauma: Not Applicable Patient Complaints: Other Time Provider Notified: 09/03/2016 21:30 Provider Notified: Initial Plan: PLACED ON EFM Datetime: 09/03/2016 20:51 Time of Arrival: 09/03/2016 20:25
== END 2016-09-04 00:50 | disposition home or self-care (01) ==
LOC: L-D 20:31 → OBT 20:31
PROVIDERS: ATTEND Obstetrics & Gynecology
DX: O62.9 Abnormality of forces of labor, unspecified (principal); Z3A.24 24 weeks gestation of pregnancy
CPT/HCPCS: 76815; 76817; 81001; 82731

== ENCOUNTER 2016-09-19 15:13 | Outpatient (CLI) | payer BC ==
[~2016-09-19] VITALS: Ht 162.6 cm; Wt 68.1 kg
[~2016-09-19 15:13] MED LIST changes: -CEPH-443 PO
[2016-09-19 16:10] LABS: ADD UMIC YES; UR ASCORBIC ACID 40 mg/dL (NEGATIVE); UR BACTERIA FEW /HPF (NONE SEEN); UR BILIRUBIN (Dip) NEGATIVE (NEGATIVE); UR BLOOD (Dip) NEGATIVE (NEGATIVE); UR CLARITY CLOUDY (CLEAR); UR COLOR AMBER (YELLOW); UR GLUCOSE (Dip) NEGATIVE (NEGATIVE); UR KETONES (Dip) TRACE mg/dL (NEGATIVE); UR LEUKOCYTE ESTERASE (Dip) 2+ Leu/ul (NEGATIVE); UR MUCUS FEW /HPF (NONE SEEN); UR NITRITE (Dip) NEGATIVE (NEGATIVE); UR RBC 4 /HPF (0-5); UR SPECIFIC GRAVITY (Dip) 1.024 (1.003-1.030); UR SQUAMOUS EPITHELIAL CELL MODERATE /HPF (FEW); UR TOTAL PROTEIN (Dip) 3+ mg/dl (NEGATIVE); UR UROBILINOGEN (Dip) NEGATIVE (NEGATIVE)
--- NOTE | 2016-09-19 17:07 | RADRPT ---
PROCEDURE: OB ultrasound for biophysical profile CLINICAL INDICATION: Biophysical profile. . Abdominal pain TECHNIQUE: Multiple sonographic images of the pelvis were obtained. Transabdominal views are obta ined. COMPARISON: 09/03/2016 FINDINGS: Single intrauterine gestation. Presentation: Transverse with head maternal left. Placenta: Posterior No evidence of placental abruption. No evidence of placenta previa is seen. breathing movement = 2/2 tone = 2/2 motion = 2/2 DARLIN = 2/2 DARLIN = 14.6 cm heart rate: 165 beats per minute IMPRESSION: Single intrauterine gestation. Biophysical profile 10/11 DARLIN = 14.6 cm Presentation: Transverse with head maternal left. RPTAT: AADD .Sammy Aguilar MD, Date Time Electronically viewed and signed by .Sammy Aguilar MD, on 09/19/2016 17:07 .B/
[2016-09-19 17:36] VITALS: Ht 162.6 cm; Wt 68.1 kg
[2016-09-19 17:38] VITALS: BP 104/61; PULSE 88
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
--- NOTE | 2016-09-19 18:50 | QN ---
Documentation Comment g1 iup 26 weeks s/p fall pt doing well vss us wnl a/p iup 26 weeks s/p fall dc home DENNIS CHÁVEZ MD Sep 19, 2016 18:50
== END 2016-09-19 18:10 | disposition home or self-care (01) ==
LOC: OBT 15:13 → L-D 15:15 → OBT 18:10
PROVIDERS: ATTEND Obstetrics & Gynecology
DX: O26.892 Other specified pregnancy related conditions, second trimester (principal); Z3A.26 26 weeks gestation of pregnancy
CPT/HCPCS: 76818; 81001; Z7500; G0463

== ENCOUNTER 2016-10-18 21:27 | Outpatient (CLI) | payer BC ==
[~2016-10-18] VITALS: Ht 162.6 cm; Wt 70.0 kg
[2016-10-18 21:48] VITALS: Ht 162.6 cm; Wt 70.0 kg
[2016-10-18 21:50] VITALS: BP 109/62; PULSE 70; RESP 18
[2016-10-18 23:07] LABS: ADD UMIC YES; UR ASCORBIC ACID NEGATIVE (NEGATIVE); UR BACTERIA FEW /HPF (NONE SEEN); UR BILIRUBIN (Dip) NEGATIVE (NEGATIVE); UR BLOOD (Dip) NEGATIVE (NEGATIVE); UR CLARITY CLOUDY (CLEAR); UR COLOR YELLOW (YELLOW); UR GLUCOSE (Dip) NEGATIVE (NEGATIVE); UR KETONES (Dip) 1+ mg/dL (NEGATIVE); UR LEUKOCYTE ESTERASE (Dip) 2+ Leu/ul (NEGATIVE); UR MUCUS FEW /HPF (NONE SEEN); UR NITRITE (Dip) NEGATIVE (NEGATIVE); UR RBC 2 /HPF (0-5); UR SPECIFIC GRAVITY (Dip) 1.018 (1.003-1.030); UR SQUAMOUS EPITHELIAL CELL MODERATE /HPF (FEW); UR TOTAL PROTEIN (Dip) 1+ mg/dl (NEGATIVE); UR UROBILINOGEN (Dip) NEGATIVE (NEGATIVE)
--- NOTE | 2016-10-19 08:57 | PN ---
Triage Information Date/Time Reason for visit: dysuria Weeks of Gestation 30w3d /Para priomigravida Hypertention: none Objective Vital Signs Date Time Temp Pulse Resp B/P Pulse Ox O2 Delivery O2 Flow Rate FiO2 10/18/16 21:50 97.9 70 18 109/62 Room Air Heart Rate: 140's Contractions: None Results/Medications Results 24 hrs Laboratory Tests Test 10/18/16 22:05 Urine Color YELLOW Urine Clarity CLOUDY A Urine pH 6.0 Urine Specific [place] 1.018 Urine Ketones 1+ H Urine Nitrite NEGATIVE Urine Bilirubin NEGATIVE Urine Urobilinogen NEGATIVE Urine Leukocyte Esterase 2+ H Urine Microscopic RBC 2 Urine Microscopic WBC 19 H Urine Squamous Epithelial Cells MODERATE Urine Bacteria FEW A Urine Mucus FEW A Urine Hemoglobin NEGATIVE Urine Glucose NEGATIVE Urine Total Protein 1+ H Medications RX macrobid Disposition: Discharge Assessment/Plan f/u at office SLIVIA AKINS MD Oct 19, 2016 08:57
== END 2016-10-18 23:45 | disposition home or self-care (01) ==
LOC: L-D 21:27 → OBT 21:27
PROVIDERS: ATTEND Obstetrics & Gynecology
DX: O26.893 Other specified pregnancy related conditions, third trimester (principal); Z3A.30 30 weeks gestation of pregnancy; R30.0 Dysuria
CPT/HCPCS: 81001; 87086; Z7500; G0463

== ENCOUNTER 2016-10-25 20:04 | Outpatient (CLI) | payer BC ==
[~2016-10-25] VITALS: Ht 162.6 cm; Wt 69.5 kg
[~2016-10-25 20:04] MED LIST changes: +ACET500C5 PO; +CEPH-443 PO
[2016-10-25] MEDS ORDERED: HAL2 PO (20:18)
[2016-10-25 20:35] VITALS: Ht 162.6 cm; Wt 69.5 kg
[2016-10-25 20:36] VITALS: BP 112/69; PULSE 92; RESP 18
[2016-10-25] MEDS ORDERED: NITR100C73 PO (21:12)
[2016-10-25 21:19] LABS: ADD UMIC YES; UR ASCORBIC ACID NEGATIVE (NEGATIVE); UR BACTERIA FEW /HPF (NONE SEEN); UR BILIRUBIN (Dip) NEGATIVE (NEGATIVE); UR BLOOD (Dip) NEGATIVE (NEGATIVE); UR CLARITY SLIGHTLY CLOUDY (CLEAR); UR COLOR YELLOW (YELLOW); UR GLUCOSE (Dip) NEGATIVE (NEGATIVE); UR KETONES (Dip) 1+ mg/dL (NEGATIVE); UR LEUKOCYTE ESTERASE (Dip) 3+ Leu/ul (NEGATIVE); UR MUCUS FEW /HPF (NONE SEEN); UR NITRITE (Dip) NEGATIVE (NEGATIVE); UR RBC 3 /HPF (0-5); UR SPECIFIC GRAVITY (Dip) 1.023 (1.003-1.030); UR SQUAMOUS EPITHELIAL CELL FEW /HPF (FEW); UR TOTAL PROTEIN (Dip) NEGATIVE (NEGATIVE); UR UROBILINOGEN (Dip) 1+ mg/dL (NEGATIVE)
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
== END 2016-10-25 22:20 | disposition home or self-care (01) ==
LOC: OBT 20:04 → L-D 20:05 → OBT 22:20
PROVIDERS: ATTEND Obstetrics & Gynecology
DX: O36.8130 Decreased fetal movements, third trimester, not applicable or unspecified (principal); Z3A.32 32 weeks gestation of pregnancy; V43.52XA Car driver injured in collision with other type car in traffic accident, initial encounter; Y92.410 Unspecified street and highway as the place of occurrence of the external cause; O9A.213 Injury, poisoning and certain other consequences of external causes complicating pregnancy, third trimester
CPT/HCPCS: 76818; 81001; Z7500; G0463

== ENCOUNTER 2016-11-09 04:00 | Inpatient (IN) | payer BC ==
[~2016-11-09] VITALS: Ht 162.6 cm; Wt 71.3 kg
[~2016-11-09 04:00] MED LIST changes: -ACET500C5 PO; -CEPH-443 PO; +NITR100C73 PO
[2016-11-09 04:25] VITALS: Ht 162.6 cm; Wt 71.3 kg
[2016-11-09] MEDS ORDERED: MAGNESIUM SULFATE 4 GM/100 ML 100 ML IV ONE (05:00)
[2016-11-09] MEDS ORDERED: ACETAMINOPHEN 325 MG TAB PO PRN (05:00)
[2016-11-09] MEDS: LACTATED RINGER'S 1,000 ML IV SCH ×2 (05:35→18:05)
[2016-11-09] MEDS: BETAMET NA PHOS/AC(6 MG/ML) 5ML INJ IM SCH (05:37)
[2016-11-09 05:54] LABS: BASOPHILS % 0.1 % (0.0-2.0); EOSINOPHILS # 0.1 10^3/ul (0.0-0.5); EOSINOPHILS % 1.2 % (0.0-7.0); HEMATOCRIT 31.8 % (37.0-47.0); HEMOGLOBIN 10.5 g/dl (12.0-16.0); LYMPHOCYTES # 2.3 10^3/ul (0.8-2.9); LYMPHOCYTES % 26.4 % (15.0-51.0); MEAN CORPUSCULAR VOLUME 87.8 fl (82.0-101.0); MEAN PLATELET VOLUME 10.6 fl (7.4-10.4); MONOCYTE # 0.7 10^3/ul (0.3-0.9); MONOCYTES % 7.5 % (0.0-11.0); NEUTROPHILS % 64.1 % (39.0-77.0); PLATELET COUNT 179 10^3/UL (140-415); RED BLOOD COUNT 3.62 10^6/ul (4.20-5.40); WHITE BLOOD COUNT 8.8 10^3/ul (4.8-10.8)
[2016-11-09] MEDS: MAGNESIUM SULFATE 20 GM/500 ML 500 ML IV SCH ×3 (06:11→23:14)
[2016-11-09 06:24] LABS: INR 1.01; PARTIAL THROMBOPLASTIN TIME 29.5 Sec (25.0-35.0); PROTIME 13.3 Sec (12.2-14.2)
--- NOTE | 2016-11-09 06:29 | HP ---
Date/Time of Note Date/Time of Note DATE: 11/09/16 TIME: 06:19 OB - History Hx of Present Free Text/Dictation 26 y.o primigravida at 33w5d with c/o uterine contractions all day with intact membrane. Initial VE 2-3cm/60% /-3 last vist to triage was 10/25/16 with c/o pevic pain admitted for tocolysis and bmz for lung maturity bed rest with mgso4 Chief Complaint: uterine contractions Estimated Due Date: Dec 23, 2016 : 1 Para: 0 Spontaneous : 0 Therapeutic : 0 Care: Good Care Ultrasounds: Normal mid trimester US Obstetrical Complications: None Medical Complications: None Past Family/Social History * Past Medical, Surgical, Family and Obstetric Histories reviewed from chart. Blood Type: Unknown Rubella: immune RPR/VDRL: Negative GBS Status: Unknown HBsAG: Negative OB Admission Exam Physical Exam HEENT: WNL Heart: Rhythm Normal Lungs: Clear, Equal Abdomen: WNL Extremities: Normal Reflexes: Normal Cervical Dilatation: 2cm Effacement: 50% Station: -3 Membranes: Intact Amniotic Fluid: Unevaluable Heart Rate: 140's Accelerations: Accelerations Present Decelerations: No Decelerations Varibility: Moderate Contractions on Admission: < 5 Minutes Apart Intensity: Mild Last 72 hours Lab Results CBC & BMP 11/09/16 05:20 OB Assessment/Plan Reason for admission: labor Other Assessment: IUP 33w5d LABOR Other plan: bed rest magnesium sulfate x2 betamethasone neonatalogy consultation SILVIA AKINS MD Nov 09, 2016 06:29
--- NOTE | 2016-11-09 06:33 | TRIAGE ---
OB Triage Datetime Report Generated by CPN: 11/09/2016 06:33 Datetime: 11/09/2016 06:15 Assessment Type: Admission Assessment Datetime: 11/09/2016 04:49 Vaginal Exam Dilatation (cms): 2.5 Vaginal Exam Dilatation (cms): 1.5 Effacement (%): 60 Station: -3 Exam By: M.PHILLIPS Datetime: 11/09/2016 04:15 Assessment Type: Triage Maternal Assessment Level of Consciousness: Fully Conscious DTR's/Clonus: DTRs 2+; No Clonus Headache: Denies Blurred Vision: No Respiratory Effort: Unlabored; Regular Rhythm; Equal Expansion Breath Sounds, Left: Clear and Equal Breath Sounds, Right: Clear and Equal Nausea/Vomiting: Denies RUQ Epigastric Pain: Denies Lower Extremities Edema: None Degree: None Upper Extremities Edema: None Degree: None Facial Edema: None Fall Risk Assessment History of Falling: (0) No Secondary Diagnosis: (0) No Ambulatory Aid: (0) Bedrest/Nurse Assist IV Therapy: (0) No Gait: (0) Normal/Bedrest/Immobile Mental Status: (0) Oriented to Own Ability Fall Score: 0 Fall Risk Score Definition: No Risk: No action required Datetime: 11/09/2016 04:00 Time of Arrival: 11/09/2016 04:00 EGA: 33.4 Arrived By: Ambulatory Chief Complaint: PT STATES SHE HAS HAD UC'S ALL DAY TODAY AND C/O VAGINAL PAIN Movement: Present Contractions: Irregular Time Contractions Began: 11/09/2016 06:00 Rupture of Membranes: Denies Vaginal Bleeding: None Vaginal Discharge: Denies Recent Sexual Intercouse: Denies Abdominal Trauma: Not Applicable Patient Complaints: None Time Provider Notified: 11/09/2016 04:10 Initial Plan: OBSERVE PT FOR CONTRACTIONS Datetime: 10/25/2016 20:30 Fall Score: 0 Fall Risk Score Definition: No Risk: No action required Datetime: 10/25/2016 20:00 EGA: 31.3 Datetime: 10/18/2016 21:43 Fall Score: 0 Fall Risk Score Definition: No Risk: No action required Datetime: 09/19/2016 18:19 EGA: 26.2 Datetime: 09/19/2016 16:30 Fall Score: 0 Fall Risk Score Definition: No Risk: No action required Datetime: 09/19/2016 16:00 Fall Score: 0 Fall Risk Score Definition: No Risk: No action required Datetime: 09/03/2016 21:06 Fall Score: 0 Fall Risk Score Definition: No Risk: No action required Datetime: 09/03/2016 20:52 EGA: 24.0
[2016-11-09] MEDS: FOLIC ACID 0.4 MG TAB PO SCH (09:26)
[2016-11-09] MEDS: PRENATAL VITAMIN PO SCH (09:26)
[2016-11-09 09:29] LABS: ADD UMIC NO; UR ASCORBIC ACID NEGATIVE (NEGATIVE); UR BILIRUBIN (Dip) NEGATIVE (NEGATIVE); UR BLOOD (Dip) NEGATIVE (NEGATIVE); UR CLARITY CLEAR (CLEAR); UR COLOR COLORLESS (YELLOW); UR GLUCOSE (Dip) NEGATIVE (NEGATIVE); UR KETONES (Dip) NEGATIVE (NEGATIVE); UR LEUKOCYTE ESTERASE (Dip) NEGATIVE Leu/ul (NEGATIVE); UR NITRITE (Dip) NEGATIVE (NEGATIVE); UR SPECIFIC GRAVITY (Dip) 1.006 (1.003-1.030); UR TOTAL PROTEIN (Dip) NEGATIVE (NEGATIVE); UR UROBILINOGEN (Dip) NEGATIVE (NEGATIVE)
--- NOTE | 2016-11-09 14:46 | RADRPT ---
PROCEDURE: US OB AND ULTRASOUND CERVIX. CLINICAL INDICATION: Size and dates , labor TECHNIQUE: Multiple sonographic images of the pelvis and gravid uterus were obtained. The images were reviewed on a PACS workstation. Transvaginal images of the cervix were also obtained. COMPARISON: US PELVIS 10/25/2016 FINDINGS: The cervix is closed and has a length of 1.7 cm. There is a single viable intrauterine gestation. Cardiac activity is present with 132 beats per min holy cross. There is a vertex presentation. The placenta is posterior. There is no evidence for an abruption or placenta previa. Measurements were made in order to determine age. The results are as follows: BPD =8.4 cm HC =30.5 cm AC =29.7 cm FL =6.4 cm Estimated gestational age of approximately 33 weeks and 4 days based on ultrasound measurements. Clinical age: 33 weeks and 4 days. The estimated date of delivery is 12/24/16, based on ultrasound measurements. The EFW = 2220 g, 41%, based on LMP age. RPTAT: AA IMPRESSION: Single viable intrauterine gestation of approximately 33 weeks and 4 days based on ultrasound measu rements. Cervix measures 1.7 cm in length. .Carroll Hyde MD, Date Time Electronically viewed and signed by .Carroll Hyde MD, on 11/09/2016 14:45 .S/
--- NOTE | 2016-11-09 16:56 | CONS ---
DATE OF ADMISSION: 11/09/2016 DATE OF CONSULTATION: 11/09/2016 NEONATOLOGY CONSULTATION: Eric is a 26-year-old, 1, para 0 mother admitted to [facility] with labor, intact membranes, being treated with tocolysis and has received the first dose of steroids. I spoke to the mother in [place] regarding the infant's possible course if delivered at this time including but not limited to, the followin. Respiratory. I discussed about the risks of mild respiratory distress syndrome or retained lung fluid, the use of oxygen supplementation or noninvasive support. Also, there is a risk for apnea of prematurity and I discussed the use of caffeine and nasal cannula support for this. There was a very minimal risk of long-term developmental problems. 2. Cardiac: There is risk of hypotension and may require volume support and/or further medication assistance. I also discussed risks of a ductus arteriosus, which is very small and most likely would not require intervention. 3. Spoke about the risks of infection, the use of antibiotics for treatment and the workup. 4. I spoke about the risks jaundice and the use of phototherapy as well as anemia, which is very low risk unless there is a significant bleeding episode, in which case this will need to be monitored closely. 5. The risk for significant long-term neural developmental problems is probably less than 1-2 percent and I discussed interventricular hemorrhage, its grading system as well as evaluation. 6. I also discussed the risk of nutritional issues, gavage feedings and possibly parental nutrition in this age group. 7. I also discussed the usual length of stay being anywhere between 2 and 6 weeks depending on the 's clinical status and progress. I answered the mother's questions and will be available for delivery and/or the care of this infant as necessary. If any further questions, please do not hesitate to contact me. Dictated By: Doreen Garcia MD /moshe/yvette /Document#: [id number]
[2016-11-10] MEDS: BETAMET NA PHOS/AC(6 MG/ML) 5ML INJ IM SCH (05:26)
[2016-11-10] MEDS: LACTATED RINGER'S 1,000 ML IV SCH ×2 (07:03→19:59)
[2016-11-10] MEDS: PRENATAL VITAMIN PO SCH (08:59)
[2016-11-10] MEDS: FOLIC ACID 0.4 MG TAB PO SCH (08:59)
[2016-11-10 10:33] VITALS: BP 109/64; PULSE 93; RESP 20
[2016-11-10] MEDS: MAGNESIUM SULFATE 20 GM/500 ML 500 ML IV SCH ×2 (13:27→22:54)
--- NOTE | 2016-11-10 22:38 | NEURPT ---
DATE: 11/10/2016 HISTORY: The patient is a primigravida at 33 weeks and 4 days, who presented with labor. Receiving magnesium sulfate, status post 2nd dose of betamethasone. Currently stable. History is all negative. REVIEW OF SYSTEMS: Negative except as mentioned above. PHYSICAL EXAMINATION: Upon admission, the above cervical length 1.7 cm. heart tone is reassuring for gestational age. Contractions none. IMPRESSION: Intrauterine at 33 weeks and 6 days with labor, status post betamethasone times 2, receiving magnesium sulfate. Contractions resolved. RECOMMENDATIONS: I do recommend to stop the magnesium sulfate tomorrow. Monitor until noon. If the patient is stable without any cervical change she can be discharged home on modified bedrest and pelvic rest. Also, consider discharging patient home on Procardia 25 mg every 6 hours. Dictated By: Araseli Reyes MD /moshe/jamaal /Document#: [id number]
[2016-11-11] MEDS: FOLIC ACID 0.4 MG TAB PO SCH (09:07)
[2016-11-11] MEDS: PRENATAL VITAMIN PO SCH (09:07)
[2016-11-11] MEDS: LACTATED RINGER'S 1,000 ML IV SCH (10:15)
[2016-11-11] MEDS: MAGNESIUM SULFATE 20 GM/500 ML 500 ML IV SCH (13:00)
--- NOTE | 2016-11-11 15:55 | PD.PPDC ---
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
--- NOTE | 2016-11-11 16:01 | DS ---
Date/Time of Note Date/Time of Note DATE: 11/11/16 TIME: 15:59 Obstetrical Discharge Record Final Diagnosis Final Diagnosis: not delivered Condition on Discharge Physical Assessment Last Vitals: vss afebrile Voiding: Yes Bowel Movement: Yes Breast: Soft, non-tender Calf Tenderness: No Patient Condition: Stable SILVIA AKINS MD Nov 11, 2016 16:01
== END 2016-11-11 16:32 | disposition home or self-care (01) | DRG 778 ==
LOC: OBT 04:00 → L-D 04:00 → OBT 05:00 → OBG 05:00
PROVIDERS: ADMIT Obstetrics & Gynecology; ATTEND Obstetrics & Gynecology
DX: O60.03 Preterm labor without delivery, third trimester (principal); Z3A.33 33 weeks gestation of pregnancy
CPT/HCPCS: 36415; 76815; 76817; 81003; 83735; 85025; 85610; 85730; 86592; 86900; 86901; G0463; J0702; J3475; J7120

== ENCOUNTER 2016-12-12 01:11 | Outpatient (CLI) | payer BC ==
[~2016-12-12] VITALS: Ht 162.6 cm; Wt 71.2 kg
[2016-12-12 01:33] VITALS: Ht 162.6 cm; Wt 71.2 kg
[2016-12-12 01:34] VITALS: BP 109/73; PULSE 74; RESP 18
--- NOTE | 2016-12-12 02:12 | PN ---
Triage Information Date/Time Reason for visit: Uterine contractions Weeks of Gestation 38+2 /Para 1/0 Diabetes: none Hypertention: none Additional information Reports normal FM, denies LOF or VB Objective Vital Signs Date Time Temp Pulse Resp B/P Pulse Ox O2 Delivery O2 Flow Rate FiO2 12/12/16 01:34 97.8 74 18 109/73 Room Air Heart Rate: 130's Heart Rate Comments moderate variability, +accels, no decels Contractions: >10 Minutes Apart Exam 2.5/60/-3 (unchanged from PTL admission 11/09) Disposition: Discharge Assessment/Plan No e/o labor at this time. Pt very comfortable in OB triage NST reactive Pt appropriate for d/c home per Dr. Betancourt Labor, ROM, FKC precautions reviewed Pt to f/up as outpatient on 12/15 as scheduled Questions answered to patient's satisfaction FELICE LAY MD Dec 12, 2016 02:12
--- NOTE | 2016-12-12 02:19 | TRIAGE ---
OB Triage Datetime Report Generated by CPN: 12/12/2016 02:18 Datetime: 12/12/2016 02:06 Labor Evaluation Frequency: NONE Monitor Mode: External Quality: Mild Pattern: Normal: <= 5 Contractions in 10 Minutes Resting Tone Bradshaw: Relaxed Heart Rate FHR Baseline Rate: 130 Monitor Mode: External US FHR Baseline Changes: No Baseline Change Variability: Moderate 6-25 bpm Accelerations: 15X15 Decelerations: None Category: Category I Datetime: 12/12/2016 01:48 Labor Evaluation Frequency: IRREGULAR Monitor Mode: External Quality: Mild Pattern: Normal: <= 5 Contractions in 10 Minutes Resting Tone Bradshaw: Relaxed Heart Rate FHR Baseline Rate: 135 Monitor Mode: External US FHR Baseline Changes: No Baseline Change Variability: Moderate 6-25 bpm Accelerations: 15X15 Decelerations: None Category: Category I Datetime: 12/12/2016 01:40 Time of Arrival: 12/12/2016 01:10 EGA: 38.2 Arrived By: Ambulatory Arrived From: Home Chief Complaint: pain in abdomen Movement: Present Contractions: Irregular Time Contractions Began: 12/11/2016 08:00 Rupture of Membranes: Denies Vaginal Bleeding: None Vaginal Discharge: Denies Recent Sexual Intercouse: Denies Abdominal Trauma: Not Applicable Patient Complaints: None Time Provider Notified: 12/12/2016 02:10 Provider Notified: Initial Plan: place on efm, call light within reach. Datetime: 12/12/2016 01:29 Heart Rate FHR Baseline Rate: 145 Monitor Mode: External US FHR Baseline Changes: No Baseline Change Variability: Moderate 6-25 bpm Accelerations: 15X15 Decelerations: None Category: Category I Datetime: 12/12/2016 01:28 Monitor Mode: External Pattern: Normal: <= 5 Contractions in 10 Minutes Contraction Comments: PLACED ON EFM Heart Rate FHR Baseline Rate: 145 Monitor Mode: External US Datetime: 11/11/2016 23:04 Stage of : Antepartum Pain Assessment Pain Scale: 0 Pain Presence: None/Denies Datetime: 11/11/2016 16:30 Stage of : Antepartum Datetime: 11/11/2016 16:25 Stage of : Antepartum Datetime: 11/11/2016 15:53 Labor Evaluation Frequency: 0 Monitor Mode: External Resting Tone Bradshaw: Relaxed Heart Rate FHR Baseline Rate: 140 Monitor Mode: External US FHR Baseline Changes: No Baseline Change Variability: Moderate 6-25 bpm Accelerations: 10X10 Decelerations: None Pain Assessment Pain Scale: 0 Pain Presence: None/Denies Pain Type: N/A Datetime: 11/11/2016 15:46 Stage of : Antepartum Datetime: 11/11/2016 10:00 Stage of : Antepartum Labor Evaluation Frequency: x2 Monitor Mode: External Duration (sec)2399: 60 Quality: Mild Resting Tone Bradshaw: Relaxed Heart Rate FHR Baseline Rate: 130 Monitor Mode: External US FHR Baseline Changes: No Baseline Change Variability: Moderate 6-25 bpm Accelerations: 10X10 Decelerations: None Datetime: 11/11/2016 09:04 Stage of : Antepartum Temperature Route: Oral Datetime: 11/11/2016 09:00 Stage of : Antepartum Labor Evaluation Frequency: x2 Monitor Mode: External Duration (sec)2399: 60 Quality: Mild Resting Tone Bradshaw: Relaxed Heart Rate FHR Baseline Rate: 130 Monitor Mode: External US FHR Baseline Changes: No Baseline Change Variability: Moderate 6-25 bpm Accelerations: 10X10 Decelerations: None Datetime: 11/11/2016 08:00 Stage of : Antepartum Labor Evaluation Frequency: x4 Monitor Mode: External Duration (sec)2399: 60 Quality: Mild Resting Tone Bradshaw: Relaxed Heart Rate FHR Baseline Rate: 130 Monitor Mode: External US FHR Baseline Changes: No Baseline Change Variability: Moderate 6-25 bpm Accelerations: 10X10 Decelerations: None Datetime: 11/11/2016 07:27 Labor Evaluation Frequency: 0 Monitor Mode: External Resting Tone Bradshaw: Relaxed Heart Rate FHR Baseline Rate: 135 Monitor Mode: External US FHR Baseline Changes: No Baseline Change Variability: Moderate 6-25 bpm Accelerations: 15X15 Decelerations: None Category: Category I Datetime: 11/11/2016 07:26 Assessment Type: Ongoing Assessment Maternal Assessment Level of Consciousness: Fully Conscious DTR's/Clonus: DTRs 1+ Headache: Denies Blurred Vision: No Respiratory Effort: Unlabored; Regular Rhythm; Equal Expansion Breath Sounds, Left: Clear and Equal Breath Sounds, Right: Clear and Equal Nausea/Vomiting: Denies RUQ Epigastric Pain: Denies Lower Extremities Edema: None Upper Extremities Edema: None Facial Edema: None Fall Risk Assessment History of Falling: (0) No Secondary Diagnosis: (0) No Ambulatory Aid: (0) Bedrest/Nurse Assist IV Therapy: (20) Yes Gait: (0) Normal/Bedrest/Immobile Mental Status: (0) Oriented to Own Ability Fall Score: 20 Fall Risk Score Definition: No Risk: No action required Datetime: 11/11/2016 06:30 Stage of : Antepartum Labor Evaluation Frequency: 0 Monitor Mode: External Resting Tone Bradshaw: Relaxed Heart Rate FHR Baseline Rate: 135 Monitor Mode: External US FHR Baseline Changes: No Baseline Change Variability: Moderate 6-25 bpm Accelerations: 15X15 Decelerations: None Category: Category I Datetime: 11/11/2016 05:30 Labor Evaluation Frequency: 0 Monitor Mode: External Resting Tone Bradshaw: Relaxed Heart Rate FHR Baseline Rate: 135 Monitor Mode: External US FHR Baseline Changes: No Baseline Change Variability: Moderate 6-25 bpm Accelerations: 15X15 Decelerations: None Category: Category I Datetime: 11/11/2016 04:30 Labor Evaluation Frequency: 0 Monitor Mode: External Resting Tone Bradshaw: Relaxed Heart Rate FHR Baseline Rate: 135 Monitor Mode: External US FHR Baseline Changes: No Baseline Change Variability: Moderate 6-25 bpm Accelerations: 15X15 Decelerations: None Category: Category I Datetime: 11/11/2016 03:30 Labor Evaluation Frequency: 0 Monitor Mode: External Resting Tone Bradshaw: Relaxed Heart Rate FHR Baseline Rate: 135 Monitor Mode: External US FHR Baseline Changes: No Baseline Change Variability: Moderate 6-25 bpm Accelerations: 15X15 Decelerations: None Category: Category I Datetime: 11/11/2016 02:30 Labor Evaluation Frequency: 0 Monitor Mode: External Resting Tone Bradshaw: Relaxed Heart Rate FHR Baseline Rate: 135 Monitor Mode: External US FHR Baseline Changes: No Baseline Change Variability: Moderate 6-25 bpm Accelerations: 15X15 Decelerations: None Category: Category I Datetime: 11/11/2016 01:30 Stage of : Antepartum Labor Evaluation Frequency: 0 Monitor Mode: External Resting Tone Bradshaw: Relaxed Heart Rate FHR Baseline Rate: 135 Monitor Mode: External US FHR Baseline Changes: No Baseline Change Variability: Moderate 6-25 bpm Accelerations: 15X15 Decelerations: None Datetime: 11/11/2016 00:30 Stage of : Antepartum Labor Evaluation Frequency: 0 Monitor Mode: External Resting Tone Bradshaw: Relaxed Heart Rate FHR Baseline Rate: 135 Monitor Mode: External US FHR Baseline Changes: No Baseline Change Variability: Moderate 6-25 bpm Accelerations: 15X15 Decelerations: None Datetime: 11/10/2016 23:30 Stage of : Antepartum Labor Evaluation Frequency: 0 Monitor Mode: External Resting Tone Bradshaw: Relaxed Heart Rate FHR Baseline Rate: 135 Monitor Mode: External US FHR Baseline Changes: No Baseline Change Variability: Moderate 6-25 bpm Accelerations: 15X15 Decelerations: None Category: Category I Datetime: 11/10/2016 22:30 Labor Evaluation Frequency: 0 Monitor Mode: External Resting Tone Bradshaw: Relaxed Heart Rate FHR Baseline Rate: 135 Monitor Mode: External US FHR Baseline Changes: No Baseline Change Variability: Moderate 6-25 bpm Accelerations: 15X15 Decelerations: None Datetime: 11/10/2016 21:30 Labor Evaluation Frequency: x1 Monitor Mode: External Duration (sec)2399: 50 Quality: Mild Resting Tone Bradshaw: Relaxed Heart Rate FHR Baseline Rate: 135 Monitor Mode: External US FHR Baseline Changes: No Baseline Change Variability: Moderate 6-25 bpm Accelerations: 15X15 Decelerations: None Category: Category I Datetime: 11/10/2016 20:30 Labor Evaluation Frequency: 0 Monitor Mode: External Resting Tone Bradshaw: Relaxed Heart Rate FHR Baseline Rate: 135 Monitor Mode: External US FHR Baseline Changes: No Baseline Change Variability: Moderate 6-25 bpm Accelerations: 15X15 Decelerations: None Category: Category I Datetime: 11/10/2016 19:30 Stage of : Antepartum Assessment Type: Ongoing Assessment Maternal Assessment Level of Consciousness: Fully Conscious DTR's/Clonus: DTRs 1+ Headache: Denies Blurred Vision: No Respiratory Effort: Unlabored; Regular Rhythm; Equal Expansion Breath Sounds, Left: Clear and Equal Breath Sounds, Right: Clear and Equal Nausea/Vomiting: Denies RUQ Epigastric Pain: Denies Lower Extremities Edema: None Upper Extremities Edema: None Facial Edema: None Temperature Route: Oral Fall Risk Assessment History of Falling: (0) No Secondary Diagnosis: (0) No Ambulatory Aid: (0) Bedrest/Nurse Assist IV Therapy: (20) Yes Gait: (0) Normal/Bedrest/Immobile Mental Status: (0) Oriented to Own Ability Fall Score: 20 Fall Risk Score Definition: No Risk: No action required Labor Evaluation Frequency: 0 Monitor Mode: External Duration (sec)2399: 0 Quality: Mild Resting Tone Bradshaw: Relaxed Heart Rate FHR Baseline Rate: 145 Monitor Mode: External US Variability: Moderate 6-25 bpm Accelerations: 15X15 Decelerations: None Category: Category I Pain Assessment Pain Scale: 0 Pain Presence: None/Denies Pain Type: N/A Datetime: 11/10/2016 19:08 Assessment Type: Ongoing Assessment Datetime: 11/10/2016 19:00 Maternal Assessment Level of Consciousness: Fully Conscious DTR's/Clonus: DTRs 1+ Headache: Denies Blurred Vision: No Nausea/Vomiting: Denies RUQ Epigastric Pain: Denies Facial Edema: None Labor Evaluation Frequency: 0 Monitor Mode: External Duration (sec)2399: 0 Quality: Mild Resting Tone Bradshaw: Relaxed Heart Rate FHR Baseline Rate: 145 Monitor Mode: External US Variability: Moderate 6-25 bpm Accelerations: 10X10 Decelerations: None Category: Category I Pain Assessment Pain Scale: 0 Pain Presence: None/Denies Pain Type: N/A Pain Goal: 0 Pain Relief Measures: Comfort Measures Vaginal Exam Membrane Status: Intact Datetime: 11/10/2016 18:00 Maternal Assessment Level of Consciousness: Fully Conscious DTR's/Clonus: DTRs 1+ Headache: Denies Blurred Vision: No Nausea/Vomiting: Denies RUQ Epigastric Pain: Denies Facial Edema: None Labor Evaluation Frequency: 15-17 Monitor Mode: External Duration (sec)2399: 10-30 Quality: Mild Resting Tone Bradshaw: Relaxed Heart Rate FHR Baseline Rate: 135 Monitor Mode: External US Variability: Moderate 6-25 bpm Accelerations: 15X15 Decelerations: None Category: Category I Vaginal Exam Membrane Status: Intact Datetime: 11/10/2016 17:17 Maternal Assessment Level of Consciousness: Fully Conscious DTR's/Clonus: DTRs 1+ Headache: Denies Blurred Vision: No Nausea/Vomiting: Denies RUQ Epigastric Pain: Denies Facial Edema: None Labor Evaluation Frequency: 10-15 Monitor Mode: External Duration (sec)2399: 40-50 Quality: Mild Resting Tone Bradshaw: Relaxed Heart Rate FHR Baseline Rate: 140 Monitor Mode: External US Variability: Moderate 6-25 bpm Accelerations: 15X15 Decelerations: None Category: Category I Pain Presence: None/Denies Pain Type: N/A Pain Relief Measures: Comfort Measures Pain Assessment Comments: pt c/o "i'm going to get a restraining order on the FOB" When asked wher e she will go tomorrow if she's discharged states "My mothers but I told her not to come because she is not on my side". Asked pt about hx of anxiety meds or counseling and pt denies hx and doesn't th ink she has anxiety. Offended by these suggestions and doesn't see them as helpfull. Vaginal Exam Membrane Status: Intact Datetime: 11/10/2016 16:00 Maternal Assessment Level of Consciousness: Fully Conscious DTR's/Clonus: DTRs 1+ Headache: Denies Blurred Vision: No Nausea/Vomiting: Denies RUQ Epigastric Pain: Denies Facial Edema: None Labor Evaluation Frequency: 7-15 Monitor Mode: External Duration (sec)2399: 5-20 Resting Tone Bradshaw: Relaxed Heart Rate FHR Baseline Rate: 135 Monitor Mode: External US Variability: Moderate 6-25 bpm Accelerations: 15X15 Decelerations: None Category: Category I Pain Assessment Pain Scale: 0 Pain Presence: None/Denies Pain Type: N/A Pain Goal: 0 Pain Relief Measures: Comfort Measures Vaginal Exam Membrane Status: Intact Datetime: 11/10/2016 15:00 Blurred Vision: No Facial Edema: None Datetime: 11/10/2016 14:57 Maternal Assessment Level of Consciousness: Fully Conscious DTR's/Clonus: DTRs 1+ Headache: Denies Blurred Vision: No Nausea/Vomiting: Denies RUQ Epigastric Pain: Denies Facial Edema: None Labor Evaluation Frequency: 0 Monitor Mode: External Duration (sec)2399: 0 Resting Tone Bradshaw: Relaxed Heart Rate FHR Baseline Rate: 140 Monitor Mode: External US Variability: Moderate 6-25 bpm Accelerations: 10X10 Decelerations: None Category: Category I Pain Assessment Pain Scale: 0 Pain Presence: None/Denies Pain Type: N/A Pain Goal: 0 Pain Relief Measures: Comfort Measures Vaginal Exam Membrane Status: Intact Datetime: 11/10/2016 13:59 Pain Presence: None/Denies Pain Type: N/A Pain Relief Measures: Comfort Measures Datetime: 11/10/2016 13:20 Maternal Assessment Level of Consciousness: Fully Conscious DTR's/Clonus: DTRs 1+ Headache: Denies Blurred Vision: No Nausea/Vomiting: Denies RUQ Epigastric Pain: Denies Facial Edema: None Labor Evaluation Frequency: 10-12 Monitor Mode: External Duration (sec)2399: 10-20 Resting Tone Bradshaw: Relaxed Heart Rate FHR Baseline Rate: 135 Monitor Mode: External US Variability: Moderate 6-25 bpm Accelerations: 15X15 Decelerations: None Category: Category I Pain Assessment Pain Scale: 0 Pain Presence: None/Denies Pain Type: N/A Pain Goal: 0 Pain Relief Measures: Comfort Measures Datetime: 11/10/2016 12:00 Maternal Assessment Level of Consciousness: Fully Conscious DTR's/Clonus: DTRs 1+ Headache: Denies Blurred Vision: No Nausea/Vomiting: Denies RUQ Epigastric Pain: Denies Facial Edema: None Monitor Mode: External Quality: Mild Pattern: Normal: <= 5 Contractions in 10 Minutes Resting Tone Bradshaw: Relaxed Heart Rate FHR Baseline Rate: 135 Monitor Mode: External US Variability: Moderate 6-25 bpm Accelerations: 10X10 Decelerations: None Category: Category I Pain Assessment Pain Scale: 0 Pain Presence: None/Denies Pain Type: N/A Pain Goal: 0 Pain Relief Measures: Comfort Measures Vaginal Exam Membrane Status: Intact Datetime: 11/10/2016 11:00 Maternal Assessment Level of Consciousness: Fully Conscious DTR's/Clonus: DTRs 1+ Headache: Denies Blurred Vision: No Respiratory Effort: Unlabored Breath Sounds, Left: Clear and Equal Breath Sounds, Right: Clear and Equal Nausea/Vomiting: Denies RUQ Epigastric Pain: Denies Facial Edema: None Labor Evaluation Frequency: 4-8 Monitor Mode: External Duration (sec)2399: 40-60 Quality: Mild Pattern: Normal: <= 5 Contractions in 10 Minutes Resting Tone Bradshaw: Relaxed Contraction Comments: "i don't feel any uc's" states pt Heart Rate FHR Baseline Rate: 130 Monitor Mode: External US Variability: Moderate 6-25 bpm Accelerations: 15X15 Decelerations: None Category: Category I Pain Assessment Pain Scale: 0 Pain Presence: None/Denies Pain Type: N/A Pain Goal: 0 Pain Relief Measures: Comfort Measures Vaginal Exam Membrane Status: Intact Datetime: 11/10/2016 09:58 Maternal Assessment Level of Consciousness: Fully Conscious DTR's/Clonus: DTRs 1+ Headache: Denies Blurred Vision: No Nausea/Vomiting: Denies RUQ Epigastric Pain: Denies Facial Edema: None Labor Evaluation Frequency: 3-5 Monitor Mode: External Duration (sec)2399: 5-10 Quality: Mild Resting Tone Bradshaw: Relaxed Heart Rate FHR Baseline Rate: 130 Monitor Mode: External US Variability: Moderate 6-25 bpm Accelerations: 10X10 Category: Category I Pain Assessment Pain Scale: 0 Pain Presence: None/Denies Pain Type: N/A Pain Goal: 3 Pain Relief Measures: Comfort Measures Vaginal Exam Membrane Status: Intact Datetime: 11/10/2016 09:28 Maternal Assessment Level of Consciousness: Fully Conscious DTR's/Clonus: DTRs 1+ Headache: Denies Blurred Vision: No Nausea/Vomiting: Denies RUQ Epigastric Pain: Denies Facial Edema: None Labor Evaluation Frequency: 3-5 Monitor Mode: External Duration (sec)2399: 5-15 Quality: Mild Resting Tone Bradshaw: Relaxed Heart Rate FHR Baseline Rate: 135 Monitor Mode: External US Variability: Moderate 6-25 bpm Accelerations: 15X15 Decelerations: None Category: Category I Pain Assessment Pain Scale: 0 Pain Presence: None/Denies Pain Type: N/A Pain Goal: 3 Pain Relief Measures: Comfort Measures Pain Assessment Comments: pt states "i don't feel any uc's" Vaginal Exam Membrane Status: Intact Datetime: 11/10/2016 08:00 Maternal Assessment Level of Consciousness: Fully Conscious DTR's/Clonus: DTRs 1+ Headache: Denies Blurred Vision: No Nausea/Vomiting: Denies RUQ Epigastric Pain: Denies Facial Edema: None Labor Evaluation Frequency: 0 Monitor Mode: External Duration (sec)2399: 0 Resting Tone Bradshaw: Relaxed Contraction Comments: no uc's palpated, pt refusing monitors "i want to sleep" Heart Rate FHR Baseline Rate: 140 Comments: pt refusing monitor Pain Assessment Pain Scale: 0 Pain Presence: None/Denies Pain Type: N/A Pain Goal: 3 Pain Assessment Comments: pt highly anxious Vaginal Exam Membrane Status: Intact Datetime: 11/10/2016 07:54 Assessment Type: Ongoing Assessment Maternal Assessment Level of Consciousness: Fully Conscious DTR's/Clonus: DTRs 1+ Headache: Denies Blurred Vision: No Respiratory Effort: Unlabored; Regular Rhythm; Equal Expansion Breath Sounds, Left: Clear and Equal Breath Sounds, Right: Clear and Equal Nausea/Vomiting: Denies RUQ Epigastric Pain: Denies Lower Extremities Edema: None Upper Extremities Edema: None Facial Edema: None Fall Risk Assessment History of Falling: (0) No Secondary Diagnosis: (0) No Ambulatory Aid: (0) Bedrest/Nurse Assist IV Therapy: (20) Yes Gait: (0) Normal/Bedrest/Immobile Mental Status: (0) Oriented to Own Ability Fall Score: 20 Fall Risk Score Definition: No Risk: No action required Datetime: 11/10/2016 06:21 Stage of : Antepartum Labor Evaluation Frequency: 0 Monitor Mode: External Duration (sec)2399: 0 Pattern: Normal: <= 5 Contractions in 10 Minutes Heart Rate FHR Baseline Rate: 135 Monitor Mode: External US FHR Baseline Changes: No Baseline Change Variability: Moderate 6-25 bpm Decelerations: None Pain Presence: None/Denies Datetime: 11/10/2016 05:21 Stage of : Antepartum Temperature Route: Oral Labor Evaluation Frequency: 0 Monitor Mode: External Duration (sec)2399: 0 Pattern: Normal: <= 5 Contractions in 10 Minutes Heart Rate FHR Baseline Rate: 135 Monitor Mode: External US FHR Baseline Changes: No Baseline Change Variability: Moderate 6-25 bpm Decelerations: None Pain Presence: None/Denies Datetime: 11/10/2016 04:00 Stage of : Antepartum Labor Evaluation Frequency: 0 Monitor Mode: External Duration (sec)2399: 0 Pattern: Normal: <= 5 Contractions in 10 Minutes Heart Rate FHR Baseline Rate: 130 Monitor Mode: External US FHR Baseline Changes: No Baseline Change Variability: Moderate 6-25 bpm Decelerations: None Category: Category I Pain Presence: None/Denies Datetime: 11/10/2016 03:41 Stage of : Antepartum Contraction Comments: Went into rm pt had taken all monitor parts off and BP cuff. Informed pt th is has to be on while Magnesium, Sulfate is running. Pt has been non compliant most of night by irma ing both off when ever she can. Datetime: 11/10/2016 03:00 Labor Evaluation Frequency: 0 Monitor Mode: External Duration (sec)2399: 0 Pattern: Normal: <= 5 Contractions in 10 Minutes Heart Rate FHR Baseline Rate: 125 Monitor Mode: External US FHR Baseline Changes: No Baseline Change Variability: Moderate 6-25 bpm Decelerations: None Datetime: 11/10/2016 02:03 Stage of : Antepartum Maternal Assessment Level of Consciousness: Fully Conscious DTR's/Clonus: DTRs 2+; No Clonus Headache: Denies Breath Sounds, Left: Clear and Equal Breath Sounds, Right: Clear and Equal Nausea/Vomiting: Denies RUQ Epigastric Pain: Denies Labor Evaluation Frequency: 0 Monitor Mode: External Resting Tone Bradshaw: Relaxed Heart Rate FHR Baseline Rate: 125 Monitor Mode: External US FHR Baseline Changes: No Baseline Change Variability: Moderate 6-25 bpm Accelerations: 15X15 Decelerations: None Pain Presence: None/Denies Pain Goal: 3 Vaginal Exam Membrane Status: Intact Datetime: 11/10/2016 01:03 Stage of : Antepartum Maternal Assessment Level of Consciousness: Fully Conscious DTR's/Clonus: DTRs 2+; No Clonus Headache: Denies Breath Sounds, Left: Clear and Equal Breath Sounds, Right: Clear and Equal Nausea/Vomiting: Denies RUQ Epigastric Pain: Denies Labor Evaluation Frequency: 0 Monitor Mode: External Resting Tone Bradshaw: Relaxed Heart Rate FHR Baseline Rate: 125 Monitor Mode: External US FHR Baseline Changes: No Baseline Change Variability: Moderate 6-25 bpm Accelerations: 15X15 Decelerations: None Pain Presence: None/Denies Pain Goal: 3 Vaginal Exam Membrane Status: Intact Datetime: 11/09/2016 23:01 Stage of : Antepartum Maternal Assessment Level of Consciousness: Fully Conscious DTR's/Clonus: DTRs 2+; No Clonus Headache: Denies Breath Sounds, Left: Clear and Equal Breath Sounds, Right: Clear and Equal Nausea/Vomiting: Denies RUQ Epigastric Pain: Denies Temperature Route: Oral Labor Evaluation Frequency: 0 Monitor Mode: External Resting Tone Bradshaw: Relaxed Heart Rate FHR Baseline Rate: 125 Monitor Mode: External US FHR Baseline Changes: No Baseline Change Variability: Moderate 6-25 bpm Accelerations: 15X15 Decelerations: None Pain Presence: None/Denies Pain Goal: 3 Vaginal Exam Membrane Status: Intact Datetime: 11/09/2016 22:02 Stage of : Antepartum Maternal Assessment Level of Consciousness: Fully Conscious Maternal Assessment Level of Consciousness: Fully Conscious DTR's/Clonus: DTRs 2+; No Clonus DTR's/Clonus: DTRs 2+ Headache: Denies Headache: Denies Breath Sounds, Left: Clear and Equal Breath Sounds, Right: Clear and Equal Nausea/Vomiting: Denies Nausea/Vomiting: Denies RUQ Epigastric Pain: Denies Labor Evaluation Frequency: 0 Monitor Mode: External Resting Tone Bradshaw: Relaxed Heart Rate FHR Baseline Rate: 130 Monitor Mode: External US FHR Baseline Changes: No Baseline Change Variability: Moderate 6-25 bpm Accelerations: 15X15 Decelerations: None Pain Presence: None/Denies Pain Goal: 3 Vaginal Exam Membrane Status: Intact Datetime: 11/09/2016 21:20 Stage of : Antepartum Maternal Assessment Level of Consciousness: Fully Conscious Maternal Assessment Level of Consciousness: Fully Conscious DTR's/Clonus: DTRs 2+; No Clonus DTR's/Clonus: DTRs 2+ Headache: Denies Headache: Denies Breath Sounds, Left: Clear and Equal Breath Sounds, Right: Clear and Equal Nausea/Vomiting: Denies Nausea/Vomiting: Denies RUQ Epigastric Pain: Denies Labor Evaluation Frequency: 0 Monitor Mode: External Resting Tone Bradshaw: Relaxed Heart Rate FHR Baseline Rate: 130 Monitor Mode: External US FHR Baseline Changes: No Baseline Change Variability: Moderate 6-25 bpm Accelerations: 15X15 Decelerations: None Pain Presence: None/Denies Pain Goal: 3 Vaginal Exam Membrane Status: Intact Datetime: 11/09/2016 20:06 Stage of : Antepartum Maternal Assessment Level of Consciousness: Fully Conscious Maternal Assessment Level of Consciousness: Fully Conscious DTR's/Clonus: DTRs 2+; No Clonus DTR's/Clonus: DTRs 2+ Headache: Denies Headache: Denies Breath Sounds, Left: Clear and Equal Breath Sounds, Right: Clear and Equal Nausea/Vomiting: Denies Nausea/Vomiting: Denies RUQ Epigastric Pain: Denies Labor Evaluation Frequency: 0 Monitor Mode: External Resting Tone Bradshaw: Relaxed Heart Rate FHR Baseline Rate: 130 Monitor Mode: External US FHR Baseline Changes: No Baseline Change Variability: Moderate 6-25 bpm Accelerations: 15X15 Decelerations: None Pain Presence: None/Denies Pain Goal: 3 Vaginal Exam Membrane Status: Intact Datetime: 11/09/2016 19:31 Assessment Type: Ongoing Assessment Maternal Assessment Level of Consciousness: Fully Conscious DTR's/Clonus: DTRs 2+; No Clonus Headache: Denies Blurred Vision: No Respiratory Effort: Unlabored; Regular Rhythm; Equal Expansion Breath Sounds, Left: Clear and Equal Breath Sounds, Right: Clear and Equal Nausea/Vomiting: Denies RUQ Epigastric Pain: Denies Facial Edema: None Fall Risk Assessment History of Falling: (0) No Secondary Diagnosis: (0) No Ambulatory Aid: (0) Bedrest/Nurse Assist IV Therapy: (20) Yes Gait: (0) Normal/Bedrest/Immobile Mental Status: (0) Oriented to Own Ability Fall Score: 20 Fall Risk Score Definition: No Risk: No action required Datetime: 11/09/2016 19:02 Stage of : Antepartum Maternal Assessment Level of Consciousness: Fully Conscious Maternal Assessment Level of Consciousness: Fully Conscious DTR's/Clonus: DTRs 2+; No Clonus DTR's/Clonus: DTRs 2+ Headache: Denies Headache: Denies Breath Sounds, Left: Clear and Equal Breath Sounds, Right: Clear and Equal Nausea/Vomiting: Denies Nausea/Vomiting: Denies RUQ Epigastric Pain: Denies RUQ Epigastric Pain: Denies Temperature Route: Oral Labor Evaluation Frequency: 0 Monitor Mode: External Resting Tone [place]: Relaxed Heart Rate FHR Baseline Rate: 130 Monitor Mode: External US FHR Baseline Changes: No Baseline Change Variability: Moderate 6-25 bpm Accelerations: 15X15 Decelerations: None Category: Category I Pain Presence: None/Denies Pain Goal: 3 Vaginal Exam Membrane Status: Intact Datetime: 11/09/2016 18:46 Maternal Assessment Level of Consciousness: Fully Conscious DTR's/Clonus: DTRs 2+ Headache: Denies Blurred Vision: No Nausea/Vomiting: Denies RUQ Epigastric Pain: Denies Labor Evaluation Frequency: 0 Monitor Mode: External Resting Tone [place]: Relaxed Heart Rate FHR Baseline Rate: 130 Monitor Mode: External US FHR Baseline Changes: No Baseline Change Variability: Moderate 6-25 bpm Accelerations: 15X15 Decelerations: None Category: Category I Pain Presence: None/Denies Datetime: 11/09/2016 17:06 Labor Evaluation Frequency: 2 Monitor Mode: External Duration (sec)2399: 60 Quality: Mild Resting Tone [place]: Relaxed Heart Rate FHR Baseline Rate: 120 Monitor Mode: External US FHR Baseline Changes: No Baseline Change Variability: Moderate 6-25 bpm Accelerations: 15X15 Decelerations: None Category: Category I Datetime: 11/09/2016 16:00 Labor Evaluation Frequency: occasional Monitor Mode: External Quality: Mild Resting Tone [place]: Relaxed Heart Rate FHR Baseline Rate: 130 Monitor Mode: External US FHR Baseline Changes: No Baseline Change Variability: Moderate 6-25 bpm Accelerations: 15X15 Decelerations: None Category: Category I Datetime: 11/09/2016 15:01 Maternal Assessment Level of Consciousness: Fully Conscious DTR's/Clonus: DTRs 2+ Headache: Denies Blurred Vision: No Nausea/Vomiting: Denies RUQ Epigastric Pain: Denies Facial Edema: None Labor Evaluation Frequency: 2 Monitor Mode: External Duration (sec)2399: 70 Quality: Mild Resting Tone [place]: Relaxed Heart Rate FHR Baseline Rate: 130 Monitor Mode: External US FHR Baseline Changes: No Baseline Change Variability: Moderate 6-25 bpm Accelerations: 15X15 Decelerations: None Category: Category I Datetime: 11/09/2016 13:50 Labor Evaluation Frequency: irritability Monitor Mode: External Quality: Mild Resting Tone [place]: Relaxed Heart Rate FHR Baseline Rate: 130 Monitor Mode: External US FHR Baseline Changes: No Baseline Change Variability: Moderate 6-25 bpm Accelerations: 15X15 Decelerations: None Category: Category I Datetime: 11/09/2016 11:56 Pain Assessment Pain Scale: 8 Datetime: 11/09/2016 11:55 Contraction Comments: pt c/o feeling cramping. in lower abd and lower back. Datetime: 11/09/2016 10:59 Labor Evaluation Frequency: 2 Monitor Mode: External Duration (sec)2399: 50 Quality: Mild Resting Tone [place]: Relaxed Heart Rate FHR Baseline Rate: 120 Monitor Mode: External US FHR Baseline Changes: No Baseline Change Variability: Moderate 6-25 bpm Accelerations: 15X15 Decelerations: None Category: Category I Datetime: 11/09/2016 09:59 Labor Evaluation Frequency: 0 Monitor Mode: External Resting Tone [place]: Relaxed Heart Rate FHR Baseline Rate: 130 Monitor Mode: External US FHR Baseline Changes: No Baseline Change Variability: Moderate 6-25 bpm Accelerations: 15X15 Decelerations: None Category: Category I Pain Presence: None/Denies Datetime: 11/09/2016 09:00 Labor Evaluation Frequency: 1 Monitor Mode: External Duration (sec)2399: 80 Quality: Mild Resting Tone [place]: Relaxed Heart Rate FHR Baseline Rate: 130 Monitor Mode: External US FHR Baseline Changes: No Baseline Change Variability: Moderate 6-25 bpm Accelerations: 15X15 Decelerations: None Category: Category I Datetime: 11/09/2016 08:05 Assessment Type: Ongoing Assessment Maternal Assessment Level of Consciousness: Fully Conscious DTR's/Clonus: DTRs 2+; No Clonus Headache: Denies Blurred Vision: No Respiratory Effort: Unlabored; Regular Rhythm; Equal Expansion Breath Sounds, Left: Clear and Equal Breath Sounds, Right: Clear and Equal Nausea/Vomiting: Denies RUQ Epigastric Pain: Denies Facial Edema: None Fall Risk Assessment History of Falling: (0) No Secondary Diagnosis: (0) No Ambulatory Aid: (0) Bedrest/Nurse Assist IV Therapy: (20) Yes Gait: (0) Normal/Bedrest/Immobile Mental Status: (0) Oriented to Own Ability Fall Score: 20 Fall Risk Score Definition: No Risk: No action required Labor Evaluation Frequency: 0 Monitor Mode: External Resting Tone [place]: Relaxed Heart Rate FHR Baseline Rate: 130 Monitor Mode: External US FHR Baseline Changes: No Baseline Change Variability: Moderate 6-25 bpm Accelerations: 15X15 Decelerations: None Category: Category I Datetime: 11/09/2016 08:04 Maternal Assessment Level of Consciousness: Fully Conscious DTR's/Clonus: DTRs 1+ Headache: Denies Blurred Vision: No Respiratory Effort: Unlabored Breath Sounds, Left: Clear and Equal Breath Sounds, Right: Clear and Equal Nausea/Vomiting: Denies RUQ Epigastric Pain: Denies Facial Edema: None Datetime: 11/09/2016 06:34 Stage of : Antepartum Assessment Type: Ongoing Assessment Maternal Assessment Level of Consciousness: Fully Conscious DTR's/Clonus: DTRs 2+; No Clonus Headache: Denies Blurred Vision: No Respiratory Effort: Unlabored; Regular Rhythm; Equal Expansion Breath Sounds, Left: Clear and Equal Breath Sounds, Right: Clear and Equal Nausea/Vomiting: Denies RUQ Epigastric Pain: Denies Lower Extremities Edema: None Degree: None Upper Extremities Edema: None Degree: None Facial Edema: None Temperature Route: Oral Fall Risk Assessment History of Falling: (0) No Secondary Diagnosis: (0) No Ambulatory Aid: (0) Bedrest/Nurse Assist IV Therapy: (0) No Gait: (0) Normal/Bedrest/Immobile Mental Status: (0) Oriented to Own Ability Fall Score: 0 Fall Risk Score Definition: No Risk: No action required Pain Presence: None/Denies Datetime: 11/09/2016 05:46 Stage of : OB Triage Maternal Assessment Level of Consciousness: Fully Conscious DTR's/Clonus: DTRs 2+; No Clonus Headache: Denies Breath Sounds, Left: Clear and Equal Breath Sounds, Right: Clear and Equal Nausea/Vomiting: Denies RUQ Epigastric Pain: Denies Labor Evaluation Frequency: IRREG Monitor Mode: External Duration (sec)2399: 40-50 Quality: Mild Pattern: Normal: <= 5 Contractions in 10 Minutes Resting Tone [place]: Relaxed Heart Rate FHR Baseline Rate: 125 Monitor Mode: External US FHR Baseline Changes: No Baseline Change Variability: Moderate 6-25 bpm Accelerations: 10X10 Decelerations: None Datetime: 11/09/2016 04:46 Stage of : OB Triage Maternal Assessment Level of Consciousness: Fully Conscious DTR's/Clonus: DTRs 2+; No Clonus Headache: Denies Breath Sounds, Left: Clear and Equal Breath Sounds, Right: Clear and Equal Nausea/Vomiting: Denies RUQ Epigastric Pain: Denies Labor Evaluation Frequency: IRREG Duration (sec)2399: 40-50 Quality: Mild Pattern: Normal: <= 5 Contractions in 10 Minutes Resting Tone [place]: Relaxed Heart Rate FHR Baseline Rate: 125 Monitor Mode: External US FHR Baseline Changes: No Baseline Change Variability: Moderate 6-25 bpm Accelerations: 10X10 Decelerations: None Category: Category I (Annotations: APPROP FOR GEST AGE) Datetime: 11/09/2016 04:15 Fall Score: 0 Fall Risk Score Definition: No Risk: No action required Datetime: 11/09/2016 04:00 EGA: 33.4 Datetime: 10/25/2016 20:30 Fall Score: 0 Fall Risk Score Definition: No Risk: No action required Datetime: 10/25/2016 20:00 EGA: 31.3 Datetime: 10/18/2016 21:43 Fall Score: 0 Fall Risk Score Definition: No Risk: No action required Datetime: 09/19/2016 18:19 EGA: 26.2 Datetime: 09/19/2016 16:30 Fall Score: 0 Fall Risk Score Definition: No Risk: No action required Datetime: 09/19/2016 16:00 Fall Score: 0 Fall Risk Score Definition: No Risk: No action required Datetime: 09/03/2016 21:06 Fall Score: 0 Fall Risk Score Definition: No Risk: No action required Datetime: 09/03/2016 20:52 EGA: 24.0
== END 2016-12-12 02:20 | disposition home or self-care (01) ==
LOC: L-D 01:11 → OBT 01:11
PROVIDERS: ATTEND Obstetrics & Gynecology
DX: O62.9 Abnormality of forces of labor, unspecified (principal); Z3A.38 38 weeks gestation of pregnancy
CPT/HCPCS: G0463

== ENCOUNTER 2016-12-17 19:09 | Inpatient (IN) | payer BC ==
[~2016-12-17] VITALS: Ht 162.6 cm; Wt 72.2 kg
[2016-12-17 19:40] VITALS: BP 113/64; PULSE 88; RESP 18
[2016-12-17] MEDS ORDERED: BUTORPHANOL 2 MG INJ IV PRN (20:30)
[2016-12-17] MEDS ORDERED: OXYTOCIN 30 UNITS/LR 500 ML IV PRN (20:30)
[2016-12-17] MEDS ORDERED: AMPICILLIN 2 GM/NS (PMX) 100 ML IV ONE (20:30)
[2016-12-17] MEDS ORDERED: LIDOCAINE 1% (MPF) 30 ML INJ INJ PRN (20:30)
[2016-12-17] MEDS ORDERED: OXYTOCIN 30 UNITS/LR 500 ML IV SCH ×2 (20:30)
[2016-12-17] MEDS ORDERED: MISOPROSTOL 200 MCG TAB PR PRN (20:30)
[2016-12-17] MEDS ORDERED: METHYLERGONOVINE 0.2 MG INJ IM PRN (20:30)
[2016-12-17] MEDS ORDERED: IBUPROFEN 600 MG TAB PO PRN (20:30)
[2016-12-17] MEDS ORDERED: CARBOPROST 250 MCG INJ IM PRN (20:30)
--- NOTE | 2016-12-17 21:03 | TRIAGE ---
OB Triage Datetime Report Generated by CPN: 12/17/2016 21:03 Datetime: 12/17/2016 20:05 Stage of : OB Triage Datetime: 12/17/2016 19:59 Labor Evaluation Frequency: 2-6 Monitor Mode: External Duration (sec)2399: 40-60 Quality: Mild Pattern: Normal: <= 5 Contractions in 10 Minutes Resting Tone [place]: Relaxed Heart Rate FHR Baseline Rate: 135 Monitor Mode: External US FHR Baseline Changes: No Baseline Change Variability: Moderate 6-25 bpm Accelerations: 15X15 Decelerations: None Category: Category I Vaginal Exam Dilatation (cms): 4.0 Effacement (%): 70 Station: -2 Exam By: Daniel Banegas Status: Intact Vaginal Bleeding: Scant Cervix, Consistency: Soft Cervix, Position: Posterior Presentation 'A': Cephalic Datetime: 12/17/2016 19:45 Time of Arrival: 12/17/2016 19:07 EGA: 39.0 Arrived By: Ambulatory Arrived From: Home Chief Complaint: c/o ucs and pelvic pressure Movement: Present Contractions: Irregular Time Contractions Began: 12/17/2016 12:00 Contractions: q10-15 Rupture of Membranes: Denies Vaginal Bleeding: None Vaginal Discharge: Denies Recent Sexual Intercouse: Denies Abdominal Trauma: Not Applicable Patient Complaints: Contractions Time Provider Notified: 12/17/2016 20:05 Provider Notified: Dr Betancourt Initial Plan: EFM,SVE Datetime: 12/17/2016 19:21 Stage of : OB Triage Maternal Assessment Level of Consciousness: Fully Conscious Headache: Denies Blurred Vision: No Respiratory Effort: Unlabored Nausea/Vomiting: Denies RUQ Epigastric Pain: Denies Facial Edema: None Labor Evaluation Frequency: placed Monitor Mode: External Resting Tone [place]: Relaxed Heart Rate FHR Baseline Rate: 145 Monitor Mode: External US Pain Assessment Pain Scale: 7 Pain Presence: Intermittent Pain Type: Contraction; Pressure Pain Location: Abdomen; Perineum Datetime: 12/12/2016 01:40 EGA: 38.2 Datetime: 11/11/2016 07:26 Fall Risk Assessment Fall Score: 20 Fall Risk Score Definition: No Risk: No action required Datetime: 11/10/2016 19:30 Fall Risk Assessment Fall Score: 20 Fall Risk Score Definition: No Risk: No action required Datetime: 11/10/2016 07:54 Fall Risk Assessment Fall Score: 20 Fall Risk Score Definition: No Risk: No action required Datetime: 11/09/2016 19:31 Fall Risk Assessment Fall Score: 20 Fall Risk Score Definition: No Risk: No action required Datetime: 11/09/2016 08:05 Fall Risk Assessment Fall Score: 20 Fall Risk Score Definition: No Risk: No action required Datetime: 11/09/2016 06:34 Fall Risk Assessment Fall Score: 0 Fall Risk Score Definition: No Risk: No action required Datetime: 11/09/2016 04:15 Fall Risk Assessment Fall Score: 0 Fall Risk Score Definition: No Risk: No action required Datetime: 11/09/2016 04:00 EGA: 33.4 Datetime: 10/25/2016 20:30 Fall Risk Assessment Fall Score: 0 Fall Risk Score Definition: No Risk: No action required Datetime: 10/25/2016 20:00 EGA: 31.3 Datetime: 10/18/2016 21:43 Fall Risk Assessment Fall Score: 0 Fall Risk Score Definition: No Risk: No action required Datetime: 09/19/2016 18:19 EGA: 26.2 Datetime: 09/19/2016 16:30 Fall Risk Assessment Fall Score: 0 Fall Risk Score Definition: No Risk: No action required Datetime: 09/19/2016 16:00 Fall Risk Assessment Fall Score: 0 Fall Risk Score Definition: No Risk: No action required Datetime: 09/03/2016 21:06 Fall Risk Assessment Fall Score: 0 Fall Risk Score Definition: No Risk: No action required Datetime: 09/03/2016 20:52 EGA: 24.0
[2016-12-17] MEDS: LACTATED RINGER'S 1,000 ML IV SCH (21:18)
[2016-12-17 21:20] LABS: BASOPHILS % 0.2 % (0.0-2.0); EOSINOPHILS # 0.1 10^3/ul (0.0-0.5); EOSINOPHILS % 0.6 % (0.0-7.0); HEMATOCRIT 34.8 % (37.0-47.0); HEMOGLOBIN 11.6 g/dl (12.0-16.0); LYMPHOCYTES % 20.1 % (15.0-51.0); MEAN CORPUSCULAR HEMOGLOBIN 28.9 pg (29.0-33.0); MEAN CORPUSCULAR HGB CONC 33.3 g/dl (32.0-37.0); MEAN CORPUSCULAR VOLUME 86.6 fl (82.0-101.0); MEAN PLATELET VOLUME 10.5 fl (7.4-10.4); MONOCYTE # 0.8 10^3/ul (0.3-0.9); NEUTROPHIL # 7.1 10^3/ul (1.6-7.5); NEUTROPHILS % 70.5 % (39.0-77.0); PLATELET COUNT 206 10^3/UL (140-415); RED BLOOD COUNT 4.02 10^6/ul (4.20-5.40); RED CELL DISTRIBUTION WIDTH 13.5 % (11.5-14.5)
[2016-12-17] MEDS ORDERED: LACTATED RINGER'S 1,000 ML IV PRN (22:00)
[2016-12-17 22:09] LABS: INR 1.02; PROTIME 13.4 Sec (12.2-14.2)
[2016-12-17 22:10] LABS: PARTIAL THROMBOPLASTIN TIME 28.3 Sec (25.0-35.0)
[2016-12-17] MEDS ORDERED: NALOXONE (0.4 MG/ML) INJ IV PRN (23:00)
[2016-12-17] MEDS ORDERED: DIPHENHYDRAMINE 50 MG INJ IV PRN (23:00)
[2016-12-17] MEDS ORDERED: ONDANSETRON 4 MG INJ IV PRN (23:00)
[2016-12-18] MEDS: AMPICILLIN 1 GM/NS (PMX) 50 ML IV SCH ×5 (01:05→16:30)
[2016-12-18] MEDS: LACTATED RINGER'S 1,000 ML IV SCH ×3 (05:26→16:04)
[2016-12-18] MEDS ORDERED: OXYTOCIN 30 UNITS/LR 500 ML IV SCH (08:00)
[2016-12-18] MEDS: FENTAnyl 2MCG/ML-ROPIV 0.2% 100 ML BAG EPI SCH ×2 (09:09→13:44)
[2016-12-18] MEDS ORDERED: MINERAL OIL LIGHT 10 ML VIAL ONE (16:38)
--- NOTE | 2016-12-18 17:18 | HP ---
Date/Time of Note Date/Time of Note DATE: 12/18/16 TIME: 17:13 OB - History Hx of Present Free Text/Dictation 26y.o A1(ia) at 39w in labor with intact membrane. VE 4.0/70/-2 EFM uc q8min admitted for expectant management Chief Complaint: UC's Estimated Due Date: Dec 24, 2016 : 2 Para: 0 Spontaneous : 0 Therapeutic : 1 Care: Good Care Ultrasounds: Normal mid trimester US Obstetrical Complications: None Medical Complications: None Past Family/Social History * Past Medical, Surgical, Family and Obstetric Histories reviewed from chart. Blood Type: A+ Rubella: immune RPR/VDRL: Negative GBS Status: Unknown HBsAG: Negative OB Admission Exam Vital Signs Vital Signs Vital Signs Date Time Temp Pulse Resp B/P Pulse Ox O2 Delivery O2 Flow Rate FiO2 12/17/16 19:40 98.5 88 18 113/64 Room Air Physical Exam HEENT: WNL Heart: Rhythm Normal Lungs: Clear, Equal Abdomen: WNL Extremities: Normal Reflexes: Normal Cervical Dilatation: 4cm Effacement: 75% Station: -2 Membranes: Intact Amniotic Fluid: Unevaluable Heart Rate: 130's Accelerations: Accelerations Present Decelerations: Early Decelerations Varibility: Moderate Contractions on Admission: 6-10 Minutes Apart Intensity: Mild Last 72 hours Lab Results CBC & BMP 12/17/16 21:00 OB Assessment/Plan Reason for admission: active labor Other Assessment: IUP 39w in labor Plan: Expectant Management SILVIA AKINS MD Dec 18, 2016 17:18
--- NOTE | 2016-12-18 17:23 | LDN ---
Date/Time of Note Date/Time of Note DATE: 12/18/16 TIME: 17:18 Delivery Summary vaccum assist vaginal delivery due to profound deceleration end od second stage of labor RMLepisiotomy X2 tight nuchal cord Weeks of Gestation 39weeks Assisted Vaginal Delivery: Vacuum Placenta Delivered: Spontaneously Meconium: none Episiotomy: Yes Indication for episiotomy due to profound decelerations Perineal laceration: 0 Laceration repair: 00 ch gut Anesthesia type: Epidural Estimated blood loss: 200 Sponge & Needle done & correct: Yes All needle counts correct: Yes Any foreign bodies felt in the: No Problems: Infant Delivery Information Sex Infant Sex: male Apgars 1 Minute: 8 5 Minute: 9 Suctioning Nose & mouth suctioned at yamileth: Yes Umbilical Cord Umbilical cord with: 3 Vessels Cord presentations: nuchal cord Nuchal cord present X: 2 Cord Blood was obtained: Yes Mother & Baby Disposition Disposition Mom & Baby to Maternity; Good: Yes Mom transferred to: Other Baby to NICU: No (postpaartum) SILVIA AKINS MD Dec 18, 2016 17:23
[2016-12-18 20:15] VITALS: BP 109/74; RESP 18
[2016-12-18] MEDS ORDERED: CARBOPROST 250 MCG INJ IM PRN (20:30)
[2016-12-18] MEDS ORDERED: BENZOCAINE 20% 56 ML SPRAY TOP PRN (20:30)
[2016-12-18] MEDS ORDERED: OXYTOCIN 30 UNITS/LR 500 ML IV PRN (20:30)
[2016-12-18] MEDS ORDERED: METHYLERGONOVINE 0.2 MG INJ IM PRN (20:30)
[2016-12-18] MEDS ORDERED: MISOPROSTOL 200 MCG TAB PR PRN (20:30)
[2016-12-18] MEDS ORDERED: WITCH HAZEL/GLYCERIN PAD PR PRN (20:30)
[2016-12-18] MEDS ORDERED: LANOLIN 7 GM TUBE TOP PRN (20:30)
[2016-12-18] MEDS ORDERED: ZOLPIDEM 5 MG TAB PO PRN (20:30)
[2016-12-18] MEDS: SENNA/DOCUSATE NA (8.6MG/50MG) TAB PO SCH (20:35)
[2016-12-18] MEDS: OXYCODONE/ASPIRIN (4.88/325) TAB PO PRN (20:36)
[2016-12-18 21:30] VITALS: BP 111/62; PULSE 88; RESP 20
[2016-12-19] MEDS: IBUPROFEN 600 MG TAB PO SCH ×5 (00:11→23:51)
[2016-12-19] MEDS: OXYCODONE/ASPIRIN (4.88/325) TAB PO PRN ×6 (02:14→22:48)
[2016-12-19 04:30] VITALS: BP 91/53; PULSE 80; RESP 18
[2016-12-19 07:50] VITALS: BP 103/66; PULSE 79; RESP 16
[2016-12-19] MEDS: SENNA/DOCUSATE NA (8.6MG/50MG) TAB PO SCH ×2 (08:38→21:01)
[2016-12-19 10:32] LABS: BASOPHILS % 0.1 % (0.0-2.0); EOSINOPHILS % 0.4 % (0.0-7.0); HEMATOCRIT 33.1 % (37.0-47.0); HEMOGLOBIN 10.8 g/dl (12.0-16.0); LYMPHOCYTES # 2.3 10^3/ul (0.8-2.9); MEAN CORPUSCULAR HEMOGLOBIN 28.1 pg (29.0-33.0); MEAN CORPUSCULAR HGB CONC 32.6 g/dl (32.0-37.0); MEAN PLATELET VOLUME 10.9 fl (7.4-10.4); MONOCYTE # 0.8 10^3/ul (0.3-0.9); MONOCYTES % 7.5 % (0.0-11.0); NEUTROPHIL # 7.2 10^3/ul (1.6-7.5); NEUTROPHILS % 69.4 % (39.0-77.0); PLATELET COUNT 213 10^3/UL (140-415); RED BLOOD COUNT 3.85 10^6/ul (4.20-5.40); RED CELL DISTRIBUTION WIDTH 13.7 % (11.5-14.5); WHITE BLOOD COUNT 10.4 10^3/ul (4.8-10.8)
[2016-12-19 15:30] VITALS: BP 114/74; PULSE 75; RESP 16
[2016-12-19] MEDS ORDERED: HYDROmorphONE 4 MG/ML SYG IM STA (16:31)
[2016-12-19] MEDS: HYDROmorphONE 1 MG/ML SYG IM SCH ×2 (16:43→16:56)
--- NOTE | 2016-12-19 18:18 | PN ---
Date/Time of Note Date/Time of Note DATE: 12/19/16 TIME: 18:16 OB Subjective Subjective Subjective c/o pain on ep OB Objective Objective Objective vss afebrile fundus firm lochia min calf no tenderness OB Assessment/Plan Other Assessment: stable Other plan: d/s home in am SILVIA AKINS MD Dec 19, 2016 18:18
[2016-12-19 19:50] VITALS: BP 112/68; PULSE 72; RESP 18
[2016-12-20 04:30] VITALS: BP 99/54; PULSE 74; RESP 18
[2016-12-20] MEDS: IBUPROFEN 600 MG TAB PO SCH ×2 (05:44→11:48)
[2016-12-20 08:30] VITALS: BP 106/65; PULSE 65; RESP 18
[2016-12-20] MEDS ORDERED: DIPHTH/TET/ACEL PERTUSS (ADULT) 0.5 ML VIAL IM* ONE (09:00)
[2016-12-20] MEDS: SENNA/DOCUSATE NA (8.6MG/50MG) TAB PO SCH (09:41)
--- NOTE | 2016-12-20 13:23 | PD.PPDC ---
INTERNATIONAL NURSE Discharge Instruction Diagnosis Final Diagnosis: s/p normal vaginal delivery Condition Patient Condition: Stable Diet Diet: Resume Regular Diet Activity/Restrictions Activity: May Shower Restrictions: No Lifting No Sexual Activity Nothing in the Vagina No [place] No Tampons, douche Follow-up Follow-up with Physician: 6, Week/Weeks Return to clinic for [facility] Instructions: Fever greater than 101 Chills Worsening abdominal pain Excessive Vaginal Bleeding More than 2 pads per hour Unable to tolerate diet OB Instructions: Breast Tenderness Depression Blurried Vision Headache SILVIA AKINS MD Dec 20, 2016 13:23
--- NOTE | 2016-12-20 13:27 | DS ---
Date/Time of Note Date/Time of Note DATE: 12/20/16 TIME: 13:25 Obstetrical Discharge Record Final Diagnosis Final Diagnosis: Term delivered Vaginal Delivery Obstetrical Delivery: Episiotomy, Repaired Complications Augmentation: Yes Rupture of Membranes: No Condition on Discharge Physical Assessment Last Vitals: vss afebrile fundus firm [place] min calf neg for tenderness Voiding: Yes Bowel Movement: Yes Breast: Soft, non-tender Fundus: Firm Episiotomy: ok Calf Tenderness: No Patient Condition: Stable SILVIA AKINS MD Dec 20, 2016 13:27
== END 2016-12-20 14:00 | disposition home or self-care (01) | DRG 775 ==
LOC: OBT 19:09 → L-D 19:09 → OBT 20:05 → L-D 20:05 → PP1 12-18 20:18
PROVIDERS: ADMIT Obstetrics & Gynecology; ATTEND Obstetrics & Gynecology
PROC: 4A1HXCZ Monitoring of Products of Conception, Cardiac Rate, External Approach (ICD-10-PCS; 2016-12-17)
PROC: 10D07Z6 Extraction of Products of Conception, Vacuum, Via Natural or Artificial Opening (ICD-10-PCS; principal; 2016-12-18)
PROC: 0W8NXZZ Division of Female Perineum, External Approach (ICD-10-PCS; 2016-12-18)
DX: O76 Abnormality in fetal heart rate and rhythm complicating labor and delivery (principal); O69.1XX0 Labor and delivery complicated by cord around neck, with compression, not applicable or unspecified; Z37.0 Single live birth; Z3A.39 39 weeks gestation of pregnancy
CPT/HCPCS: 62319; 85025; 85610; 85730; 86592; 86900; 86901; 87340; 90715; 99464; G0463; J0290; J1170; J2590; J3010; J7120

== ENCOUNTER 2017-08-25 02:25 | Emergency (ER) | END 2017-08-25 06:15 | disposition home or self-care (01) ==

== ENCOUNTER 2018-02-05 01:00 | Emergency (ER) | END 2018-02-05 03:00 | disposition home or self-care (01) ==